=== PATIENT | female | born 1955 | race Caucasian/White ===

== ENCOUNTER 2018-12-05 21:54 | Emergency (ER) | payer MEDICARE ==
[~2018-12-05 21:54] MED LIST: SODIUM CHLORIDE 0.9% 1,000 ML IV STA
[2018-12-05 22:08] LABS: Glucose,Whole Blood 118 mg/dL (75-99)
[2018-12-05 22:09] VITALS: TEMP 98.1
--- NOTE | 2018-12-05 22:25 | CT ---
ADDENDUM - Added by Beth Nguyen M.D. on 12/05/2018 10:25 PM (-07:00) EXAM: CT Head Without Intravenous Contrast CLINICAL HISTORY: Right sided weakness ITS.REASON CT Reason: Neuro Deficits TECHNIQUE: Axial computed tomography images of the head/brain without intravenous contrast. CTDI is 48.8 mGy and DLP is 1592.7 mGy-cm. This CT exam was performed using one or more of the following dose reduction techniques: automated exposure control, adjustment of the mA and/or kV according to patient size, and/or use of iterative reconstruction technique. COMPARISON: No relevant prior studies available. FINDINGS: Brain: No hemorrhage. Small focus of low-attenuation in the left parietal region (sagittal 39), possible small age indeterminate infarct. Bilateral frontoparietal postsurgical changes and encephalomalacia. Right frontal shunt catheter is noted. Patchy white matter low attenuation, nonspecific. Involutional changes. Ventricles: Unremarkable. Bones/joints: No acute fracture. Soft tissues: Unremarkable. Sinuses: Minimal sinus disease. Mastoid air cells: Unremarkable as visualized. IMPRESSION: 1. No intracranial hemorrhage.. 2. Small focus of low-attenuation in the left parietal region, possible age indeterminate infarct. Correlate with prior imaging if available, MRI may be considered if indicated. <MYCVCSECTION> Critical Value Communications 12/05/18 22:35 Verify Receipt Verified receipt with Kati NOGUERA given to Dr. Alvarado on 12/05 22:34 (-04:00)
--- NOTE | 2018-12-05 22:35 | ED ---
Neuro HPI - General Stated Complaint: Stroke like symptoms Time Seen by Provider: 12/05/18 21:54 Source: EMS Mode of arrival: EMS Limitations: no limitations - History of Present Illness Is the patient presenting with stroke symptoms?: Yes Last Known Well Date: 12/05/18 Last Known Well Time: 20:00 Onset/Timin -: hour(s) Initial Comments: Does a 63-year-old female with past medical history significant for aneurysm and resulting neurosurgical surgery was shunt placement. Patient presents to the emergency department today for evaluation of acute onset of right arm and leg weakness. Patient reports these symptoms developed around 8 PM tonight. P afia reports decreased sensation in her arm and leg as well as weakness. She denies any headache, vision changes. - Related Data Home Medications: Home Medications Medication Instructions Recorded Confirmed Atorvastatin [Lipitor] 40 mg PO HS 12/05/18 12/05/18 Divalproex [Depakote] 250 mg PO BID 12/05/18 12/05/18 Sertraline [Zoloft] 50 mg PO DAILY 12/05/18 12/05/18 Allergies/Adverse Reactions: Allergies Allergy/AdvReac Type Severity Reaction Status Date / Time No Known Allergies Allergy Unverified 12/05/18 22:07 Review of Systems ROS Statement: Those systems with pertinent positive or pertinent negative responses have been documented in the HPI. ROS Other: All systems not noted in ROS Statement are negative. General Exam - General Exam Comments Initial Comments: Physical Exam GENERAL: Patient is well-developed and well-nourished. Patient is nontoxic and well- hydrated and is in no distress. HENT: Normocephalic, Atraumatic. EYES: Sluggish reaction of right pupil PULMONARY: Unlabored respirations. No audible rales rhonchi or wheezing was noted. CARDIOVASCULAR: There is a regular rate and rhythm without any murmurs gallops or rubs. ABDOMEN: Soft and nontender with normal bowel sounds. SKIN: Skin is clear with no lesions or rashes and otherwise unremarkable. : Deferred NEUROLOGIC: Patient is alert and oriented x3. Moving all extremities spontaneously Cranial nerves II through XII grossly intact Patient has drift of the right upper extremity as well as drift of the right lower extremity Normal surgical scrub technologist strength Decreased sensation of the right upper extremity No ataxia MUSCULOSKELETAL: Normal extremities with adequate strength and full range of motion. No lower extremity swelling or edema. No calf tenderness. PSYCHIATRIC: Appropriate situational anxiety Limitations: no limitations Stroke MDM - Lab Data Result diagrams: 12/05/18 22:25 12/05/18 22:21 Lab Results 12/05/18 12/05/18 12/05/18 Range/Units 22:06 22:21 22:21 WBC (3.8-10.6) k/uL RBC (3.80-5.40) m/uL Hgb (11.4-16.0) gm/dL Hct (34.0-46.0) % MCV (80.0-100.0) fL MCH (25.0-35.0) pg MCHC (31.0-37.0) g/dL RDW (11.5-15.5) % Plt Count (150-450) k/uL Neutrophils % % Lymphocytes % % Monocytes % % Eosinophils % % Basophils % % Neutrophils # (1.3-7.7) k/uL Lymphocytes # (1.0-4.8) k/uL Monocytes # (0-1.0) k/uL Eosinophils # (0-0.7) k/uL Basophils # (0-0.2) k/uL PT 9.4 (9.0-12.0) sec INR 0.9 (<1.2) APTT 20.2 L (22.0-30.0) sec Sodium 141 (137-145) mmol/L Potassium 4.8 (3.5-5.1) mmol/L Chloride 113 H (98-107) mmol/L Carbon Dioxide 18 L (22-30) mmol/L Anion Gap 10 mmol/L BUN 19 H (7-17) mg/dL Creatinine 1.01 (0.52-1.04) mg/dL Est GFR (CKD-EPI)AfAm 68 (>60 ml/min/1.73 sqM) Est GFR (CKD-EPI)NonAf 59 (>60 ml/min/1.73 sqM) Glucose 104 H (74-99) mg/dL POC Glucose (mg/dL) 118 H (75-99) mg/dL POC Glu Audio Production Manager ID Brittney Faith Calcium 9.2 (8.4-10.2) mg/dL Total Bilirubin 0.5 (0.2-1.3) mg/dL AST 31 (14-36) U/L ALT 19 (9-52) U/L Alkaline Phosphatase 113 (38-126) U/L Troponin I (0.000-0.034) ng/mL Total Protein 7.2 (6.3-8.2) g/dL Albumin 4.1 (3.5-5.0) g/dL 12/05/18 12/05/18 Range/Units 22:21 22:25 WBC 7.1 (3.8-10.6) k/uL RBC 4.00 (3.80-5.40) m/uL Hgb 12.6 (11.4-16.0) gm/dL Hct 37.9 (34.0-46.0) % MCV 94.6 (80.0-100.0) fL MCH 31.6 (25.0-35.0) pg MCHC 33.4 (31.0-37.0) g/dL RDW 15.0 (11.5-15.5) % Plt Count 264 (150-450) k/uL Neutrophils % 51 % Lymphocytes % 32 % Monocytes % 6 % Eosinophils % 8 % Basophils % 1 % Neutrophils # 3.7 (1.3-7.7) k/uL Lymphocytes # 2.3 (1.0-4.8) k/uL Monocytes # 0.4 (0-1.0) k/uL Eosinophils # 0.6 (0-0.7) k/uL Basophils # 0.1 (0-0.2) k/uL PT (9.0-12.0) sec INR (<1.2) APTT (22.0-30.0) sec Sodium (137-145) mmol/L Potassium (3.5-5.1) mmol/L Chloride (98-107) mmol/L Carbon Dioxide (22-30) mmol/L Anion Gap mmol/L BUN (7-17) mg/dL Creatinine (0.52-1.04) mg/dL Est GFR (CKD-EPI)AfAm (>60 ml/min/1.73 sqM) Est GFR (CKD-EPI)NonAf (>60 ml/min/1.73 sqM) Glucose (74-99) mg/dL POC Glucose (mg/dL) (75-99) mg/dL POC Glu Audio Production Manager ID Calcium (8.4-10.2) mg/dL Total Bilirubin (0.2-1.3) mg/dL AST (14-36) U/L ALT (9-52) U/L Alkaline Phosphatase (38-126) U/L Troponin I <0.012 (0.000-0.034) ng/mL Total Protein (6.3-8.2) g/dL Albumin (3.5-5.0) g/dL - NIH Stroke Scale 1a. Level of Consciousness: (0) alert 1b. LOC Questions: (0) answers correctly 1c. LOC Commands: (0) performs tasks correctly 2. Best Gaze: (0) normal 3. Visual: (0) no visual loss 4. Facial Palsy: (0) normal symmetrical movement 5a. Motor Arm Left: (0) no drift 5b. Motor Arm Right: (1) drift 6a. Motor Leg Left: (0) no drift 6b. Motor Leg Right: (1) drift 7. Limb Ataxia: (0) absent 8. Sensory: (1) mild/moderate sensory loss 9. Best Language: (0) no aphasia 10. Dysarthria: (0) normal 11. Extinction/Inattention: (0) no abnormality - Medical Decision Making The patient was seen and evaluated immediately upon arrival to the emergency department. Patient was noted to have right arm and leg drift, NIH is 3. Patient was transitioned physician from EMS [facility] directly to the CT suite where she underwent a CT and CTA. Patient care was discussed with neuro inter ventional is Dr. Gutierrez, who evaluated the patient via the stroke robot, patient adamantly declines TPA as she has had intracranial hemorrhage in the past with aneurysm rupture and does not want to risk any further intracranial hemorrhage. Patient understands risks and benefits. At this time Dr. Gutierrez recommends transfer to [facility] for admission to the neuro ICU. Past Medical History Additional Past Medical History / Comment(s): brain aneurysm History of Any Multi-Drug Resistant Organisms: None Reported Past Surgical History: Back Surgery, Orthopedic Surgery Additional Past Surgical History / Comment(s): shunt placement, neck surgery, right knee Past Psychological History: No Psychological Hx Reported Smoking Status: Current every day smoker Past Alcohol Use History: None Reported Past Drug Use History: None Reported Course Vital Signs 12/05/18 12/05/18 12/05/18 21:56 22:10 22:20 Temperature 98.1 F Pulse Rate 98 89 90 Respiratory 18 19 19 Rate Blood Pressure 111/66 111/68 114/62 O2 Sat by Pulse 98 98 98 Oximetry 12/05/18 12/05/18 12/05/18 22:30 22:40 22:50 Temperature Pulse Rate 93 93 93 Respiratory 16 18 13 Rate Blood Pressure 114/62 150/96 147/72 O2 Sat by Pulse 97 97 96 Oximetry 12/05/18 12/05/18 23:21 23:40 Temperature Pulse Rate 91 100 Respiratory 20 20 Rate Blood Pressure 99/82 109/78 O2 Sat by Pulse 98 96 Oximetry Critical Care Time Critical Care Time: Yes Total Critical Care Time: 30 Critical Care Time: Critical Care Time Critical care time was exclusive of separately billable procedures and treating other patients and teaching time. Critical care was necessary to treat or prevent imminent or life-threatening deterioration. Given the critical condition in which the patient arrived, the patient was immediately assessed by myself and the nurse, and cardiac monitoring initiated due to the potential for rapid decompensation of the patient's clinical condition. During the course of the patients stay, I spent a considerable amount of time at the bedside performing serial re-evaluations of the patient's hemodynamic and clinical status because of the recognized potential threat to life or limb in this condition. I then had a chance to review not only all of the available current laboratory and radiographic studies obtained today, but I also reviewed old records available to me at the time. Additionally, any anc illary information available including automatic coil machine operator records were reviewed. Sequential vital signs were obtained. Disposition Clinical Impression: Cerebrovascular accident Disposition: OTHER INSTITUTION NOT DEFINED Condition: Serious Is patient prescribed a controlled substance at d/c from ED?: No Referrals: None,Stated [REFERRING] - 1-2 days - Out of Hospital Transfer - Req. Specs Out of Hospital Transfer - Requested Specifics: Neurological ICU ([facility])
[2018-12-05] MEDS ORDERED: ATORVASTATIN 20 MG TAB PO STA (22:36)
[2018-12-05] MEDS ORDERED: ASPIRIN 325 MG TAB PO STA (22:36)
--- NOTE | 2018-12-05 22:36 | CT ---
EXAM: CT Angiography Head With Intravenous Contrast CLINICAL HISTORY: ITS.REASON CT Reason: Neuro Deficits TECHNIQUE: Axial computed tomographic angiography images of the head with intravenous contrast using CT angiography protocol. CTDI is 11.8 mGy and DLP is 489.7 mGy-cm. This CT exam was performed using one or more of the following dose reduction techniques: automated exposure control, adjustment of the mA and/or kV according to patient size, and/or use of iterative reconstruction technique. 3D and MIP reconstructed images were created and reviewed. COMPARISON: CT head 12/05/2018 FINDINGS: Right internal carotid artery: No acute findings. Intracranial segment is patent with no significant stenosis. No aneurysm. Right anterior cerebral artery: Unremarkable. No occlusion or significant stenosis. No aneurysm. Right middle cerebral artery: Unremarkable. No occlusion or significant stenosis. No aneurysm. Right posterior cerebral artery: Unremarkable. No occlusion or significant stenosis. No aneurysm. Right vertebral artery: Unremarkable as visualized. Left internal carotid artery: No acute findings. Intracranial segment is patent with no significant stenosis. No aneurysm. Left anterior cerebral artery: Unremarkable. No occlusion or significant stenosis. No aneurysm. Left middle cerebral artery: Unremarkable. No occlusion or significant stenosis. No aneurysm. Left posterior cerebral artery: Unremarkable. No occlusion or significant stenosis. No aneurysm. Left vertebral artery: Unremarkable as visualized. Basilar artery: Unremarkable. No occlusion or significant stenosis. No aneurysm. Bones/joints: Postsurgical changes seen related to bilateral pterional craniotomies with right parasellar aneurysm clip. There is also a right frontal approach ventriculostomy with catheter tip in the third ventricle. IMPRESSION: 1. No large vessel occlusion. 2. Postsurgical change related to right parasellar aneurysm clip. EXAM: CT Angiography Neck With Intravenous Contrast CLINICAL HISTORY: ITS.REASON CT Reason: Neuro Deficits TECHNIQUE: Axial computed tomographic angiography images of the neck with intravenous contrast using CT angiography protocol. CTDI is 11.8 mGy and DLP is 489.7 mGy-cm. This CT exam was performed using one or more of the following dose reduction techniques: automated exposure control, adjustment of the mA and/or kV according to patient size, and/or use of iterative reconstruction technique. 3D and MIP reconstructed images were created and reviewed. COMPARISON: None. FINDINGS: VASCULATURE: Right common carotid artery: Unremarkable. No significant stenosis. No dissection or occlusion. Right internal carotid artery: See below. Right external carotid artery: Unremarkable. No occlusion. Right vertebral artery: Unremarkable. No significant stenosis. No dissection or occlusion. Left common carotid artery: Unremarkable. No significant stenosis. No dissection or occlusion. Left internal carotid artery: See below. Left external carotid artery: Unremarkable. No occlusion. Left vertebral artery: Unremarkable. No significant stenosis. No dissection or occlusion. Other vasculature: There is atherosclerosis of the carotid bifurcations without hemodynamically significant stenosis. NECK: Bones/joints: No acute fracture. No dislocation. Soft tissues: Unremarkable as visualized. No mass. CAROTID STENOSIS REFERENCE USING NASCET CRITERIA: % ICA stenosis = (1 - narrowest ICA diameter/diameter of distal cervical ICA) x 100. Mild - <50% stenosis. Moderate - 50-69% stenosis. Severe - 70-94% stenosis. Near occlusion - 95-99% stenosis. Occluded - 100% stenosis. IMPRESSION: No evidence of dissection, pseudoaneurysm, or hemodynamically significant stenosis of the carotid or vertebral arteries.
[2018-12-05 22:42] LABS: Albumin 4.1 g/dL (3.5-5.0); Calcium 9.2 mg/dL (8.4-10.2); Total Bilirubin 0.5 mg/dL (0.2-1.3); Total Protein 7.2 g/dL (6.3-8.2)
[2018-12-05 22:44] LABS: Potassium 4.8 mmol/L (3.5-5.1)
[2018-12-05 22:51] LABS: INR 0.9 (<1.2); Prothrombin Time 9.4 sec (9.0-12.0)
[2018-12-05 22:52] LABS: Partial Thromboplastin Time 20.2 sec (22.0-30.0)
[2018-12-05 22:56] LABS: Basophils # (A) 0.1 k/uL (0-0.2); Basophils % (A) 1 %; Eosinophils # (A) 0.6 k/uL (0-0.7); Eosinophils % (A) 8 %; HCT 37.9 % (34.0-46.0); HGB 12.6 gm/dL (11.4-16.0); Lymphocytes # (A) 2.3 k/uL (1.0-4.8); Lymphocytes % (A) 32 %; MCH 31.6 pg (25.0-35.0); MCHC 33.4 g/dL (31.0-37.0); MCV 94.6 fL (80.0-100.0); Mean Platelet Volume 9.6; Monocytes # (A) 0.4 k/uL (0-1.0); Monocytes % (A) 6 %; Neutrophils # (A) 3.7 k/uL (1.3-7.7); Neutrophils % (A) 51 %; Platelet Count 264 k/uL (150-450); WBC 7.1 k/uL (3.8-10.6)
[2018-12-05] MEDS ORDERED: LORazepam 1 MG TAB PO STA (22:57)
--- NOTE | 2018-12-05 23:10 | XR ---
EXAM: XR Chest, 1 View CLINICAL HISTORY: ITS.REASON XR Reason: altered mental status TECHNIQUE: Frontal view of the chest. COMPARISON: No relevant prior studies available. FINDINGS: Lungs: Mild atelectatic changes. No consolidation. Pleural space: No significant pleural effusion or pneumothorax. Heart: Unremarkable. Mediastinum: Unremarkable. Bones/joints: Cervical hardware and shunt catheter noted. IMPRESSION: Mild atelectatic changes. No consolidation.
[2018-12-06 00:30] VITALS: BP 116/82; PULSE 92; RESP 24
== END 2018-12-06 00:46 | disposition short-term general hospital (02) ==
LOC: EC 21:54
DX: I63.9 Cerebral infarction, unspecified (principal); R29.703 NIHSS score 3; F17.200 Nicotine dependence, unspecified, uncomplicated; Z79.899 Other long term (current) drug therapy; Z86.69 Personal history of other diseases of the nervous system and sense organs; Z98.2 Presence of cerebrospinal fluid drainage device; Z53.29 Procedure and treatment not carried out because of patient's decision for other reasons
CPT/HCPCS: 36415; 93005; 80053; 84484; 85025; 85610; 85730; 71045; 70496; 70450; 70498; 99291; 96360; 96361; Q9967

== ENCOUNTER 2020-11-06 15:23 | Emergency (ER) | payer MEDICARE ==
--- NOTE | 2020-11-06 16:02 | ED ---
Psych HPI - General Source: EMS Mode of arrival: EMS <Daxa Pugh - Last Filed: 11/07/20 00:38> <Julio Cisneros - Last Filed: 11/11/20 15:23> - General Chief Complaint: Psychiatric Symptoms Stated Complaint: Mental Health Time Seen by Provider: 11/06/20 15:25 - History of Present Illness Initial Comments: 65 year-old female patient presents to the emergency department for [facility] for increased agitation and UTI. Patient has history of dementia and psychosis and is unable to contribute to history. States she does not know why she is here. States she feels fine. She does report a headache but states she has had them for years. Denies any new symptoms. When asked if she is suicidal she states "I don't know", she indicated to the nurse that she felt like she would be better off , but does not have a plan to take her life. She denies any homicidal ideation. When asked about threatening staff at [facility] she states, "I would never hurt anyone". Patient denies any recent rash, fever, chills, cough, shortness of breath, chest pain, abdominal pain, nausea, vomiting, diarrhea, constipation, back pain, numbness, tingling, dizziness, weakness, hematuria, dysuria, urinary urgency, urinary frequency, visual changes, or any other complaints. (Daxa Pugh) - Related Data Home Medications Medication Instructions Recorded Confirmed ALPRAZolam [Xanax] 0.25 mg PO Q8H PRN 11/06/20 11/06/20 Aspirin EC [Ecotrin] 325 mg PO DAILY 11/06/20 11/06/20 Atorvastatin Calcium [Lipitor] 20 mg PO HS 11/06/20 11/06/20 Clopidogrel Bisulfate [Plavix] 75 mg PO DAILY 11/06/20 11/06/20 Donepezil HCl [Aricept] 10 mg PO DAILY 11/06/20 11/06/20 Ezetimibe [Zetia] 10 mg PO HS 11/06/20 11/06/20 Melatonin 3 mg PO HS PRN 11/06/20 11/06/20 Omeprazole 20 mg PO HS 11/06/20 11/06/20 Sertraline HCl [Zoloft] 100 mg PO DAILY 11/06/20 11/06/20 Topiramate [Topamax] 100 mg PO BID@0700,1600 11/06/20 11/06/20 traZODone HCL 100 mg PO HS 11/06/20 11/06/20 Allergies Allergy/AdvReac Type Severity Reaction Status Date / Time No Known Allergies Allergy Verified 11/06/20 17:18 Review of Systems ROS Other: All systems not noted in ROS Statement are negative. <Daxa Pugh - Last Filed: 11/07/20 00:38> ROS Other: All systems not noted in ROS Statement are negative. <Julio Cisneros - Last Filed: 11/11/20 15:23> ROS Statement: Those systems with pertinent positive or pertinent negative responses have been documented in the HPI. Past Medical History Past Medical History: CVA/TIA, GERD/Reflux, Hyperlipidemia, Liver Disease Additional Past Medical History / Comment(s): brain aneurysm; TIA; Hepatitis C; Dementia; Psychosis History of Any Multi-Drug Resistant Organisms: None Reported Past Surgical History: Back Surgery, Orthopedic Surgery Additional Past Surgical History / Comment(s): shunt placement, neck surgery, right knee Past Psychological History: No Psychological Hx Reported Smoking Status: Current every day smoker Past Alcohol Use History: Occasional Past Drug Use History: None Reported <Daxa Pugh - Last Filed: 11/07/20 00:38> General Exam Limitations: no limitations General appearance: alert, in no apparent distress, other (Physical well-deve loped, well-nourished adult female patient in no acute distress. Vital signs upon presentation temperature 98.0F, pulse 69, respirations 18, blood pressure 109/67, pulse ox 100% on room air.) Eye exam: Present: normal appearance, PERRL, EOMI. Absent: scleral icterus, conjunctival injection, nystagmus, periorbital swelling ENT exam: Present: normal exam, normal oropharynx, mucous membranes moist Respiratory exam: Present: normal lung sounds bilaterally. Absent: respiratory distress, wheezes, rales, rhonchi, stridor Cardiovascular Exam: Present: regular rate, normal rhythm, normal heart sounds. Absent: systolic murmur, diastolic murmur, rubs, gallop, clicks GI/Abdominal exam: Present: soft, normal bowel sounds. Absent: distended, tenderness, guarding, rebound, rigid Neurological exam: Present: alert, oriented X3, CN II-XII intact Psychiatric exam: Present: normal affect, normal mood Skin exam: Present: warm, dry, intact, normal color. Absent: rash <Daxa Pugh - Last Filed: 11/07/20 00:38> Course <Daxa Pugh - Last Filed: 11/07/20 00:38> <Julio Cisneros - Last Filed: 11/11/20 15:23> Vital Signs 11/06/20 11/06/20 11/06/20 15:29 16:37 17:00 Temperature 98 F Pulse Rate 69 Respiratory 18 18 18 Rate Blood Pressure 109/67 O2 Sat by Pulse 100 Oximetry 11/06/20 11/07/20 11/07/20 18:00 06:30 17:25 Temperature 98.2 F 98.4 F Pulse Rate 61 73 Respiratory 18 22 20 Rate Blood Pressure 90/56 111/69 O2 Sat by Pulse 98 97 Oximetry 11/08/20 11/08/20 11/08/20 06:05 11:09 20:20 Temperature 97.8 F 98.3 F Pulse Rate 78 65 Respiratory 18 16 16 Rate Blood Pressure 96/63 110/71 O2 Sat by Pulse 98 98 Oximetry 11/08/20 11/09/20 11/09/20 21:30 07:28 22:36 Temperature 97.8 F 98.3 F Pulse Rate 72 78 Respiratory 18 18 16 Rate Blood Pressure 97/54 110/78 O2 Sat by Pulse 99 98 Oximetry 11/10/20 11/10/20 11/10/20 07:14 16:35 18:10 Temperature 98.0 F Pulse Rate 76 89 70 Respiratory 16 16 16 Rate Blood Pressure 103/68 136/79 102/62 O2 Sat by Pulse 97 99 96 Oximetry 11/10/20 11/11/20 11/11/20 23:00 08:00 09:00 Temperature Pulse Rate 87 Respiratory 17 16 16 Rate Blood Pressure 117/73 O2 Sat by Pulse 97 Oximetry 11/11/20 11/11/20 11/11/20 10:00 10:23 13:00 Temperature 98.1 F Pulse Rate 62 Respiratory 16 16 16 Rate Blood Pressure 99/61 O2 Sat by Pulse 96 Oximetry 11/11/20 14:00 Temperature Pulse Rate Respiratory 16 Rate Blood Pressure O2 Sat by Pulse Oximetry - Reevaluation(s) Reevaluation #1: 11/06/20 16:55 Patient became agitated. Trying to leave the room. Yelling at staff. Yelling, " It doesn't matter, my family don't care, I don't care, and you don't care. I want to . Give me a shot to kill me." "There is nothing to live for anymore, I want to ". Patient was coaxed back into her room. She will be given an injection of ativan to help calm her. She will be closely monitored. (Daxa Pugh) Reevaluation #2: 11/06/20 19:05 Patient evaluated by EPS. Psychiatrist feels patient would benefit from admission to inpatient geriatric psych facility. Patient verbalized both suicidal and homicidal ideation. EPS arranging transfer. Patient currently calm and cooperative. (Daxa Pugh) 11/11/20 15:21 Patient was seen by mental health services who feels patient can be discharged. Patient was seen by psychiatrist and medication changes were recommended. Patient will be transferred back to nursing facility. Patient was reevaluated and resting comfortably in bed. Patient is acting appropriate at this time. Patient was reevaluated and reexamined by myself. I do agree with PA findings including diagnostic interpretation and treatment plan. There is limited concern for urinary tract infection. (Julio Cisneros) Medical Decision Making - Lab Data Result diagrams: 11/06/20 16:03 11/06/20 16:03 <Daxa Pugh - Last Filed: 11/07/20 00:38> - Lab Data Result diagrams: 11/06/20 16:03 11/06/20 16:03 <Julio Cisneors - Last Filed: 11/11/20 15:23> - Medical Decision Making 65 year-old female patient presented to the emergency department today for increased agitation homicidal ideation. Patient did admit to suicidal ideation as well. Did have an outburst where she was begging someone to give her a shot to kill her. As reviewed and were unremarkable. CT of the brain was negative. She was seen and evaluated by emergency psychiatric services. Psychiatry felt that it was beneficial for her to be admitted to [facility] psychiatric facility. She will be transferred as soon as a facility becomes available. Patient has been resting comfortably. Care will be handed over to my attending Dr. Hernandez at 00:00 11/07/20. (Daxa Pugh) - Lab Data Lab Results 11/06/20 11/06/20 11/06/20 Range/Units 15:53 15:53 16:03 WBC 7.5 (3.8-10.6) k/uL RBC 3.88 (3.80-5.40) m/uL Hgb 12.4 (11.4-16.0) gm/dL Hct 37.9 (34.0-46.0) % MCV 97.6 (80.0-100.0) fL MCH 31.8 (25.0-35.0) pg MCHC 32.6 (31.0-37.0) g/dL RDW 14.4 (11.5-15.5) % Plt Count 232 (150-450) k/uL MPV 10.5 Neutrophils % 66 % Lymphocytes % 20 % Monocytes % 7 % Eosinophils % 6 % Basophils % 1 % Neutrophils # 4.9 (1.3-7.7) k/uL Lymphocytes # 1.5 (1.0-4.8) k/uL Monocytes # 0.5 (0-1.0) k/uL Eosinophils # 0.4 (0-0.7) k/uL Basophils # 0.1 (0-0.2) k/uL Sodium (137-145) mmol/L Potassium (3.5-5.1) mmol/L Chloride (98-107) mmol/L Carbon Dioxide (22-30) mmol/L Anion Gap mmol/L BUN (7-17) mg/dL Creatinine (0.52-1.04) mg/dL Est GFR (CKD-EPI)AfAm (>60 ml/min/1.73 sqM) Est GFR (CKD-EPI)NonAf (>60 ml/min/1.73 sqM) Glucose (74-99) mg/dL Calcium (8.4-10.2) mg/dL Total Bilirubin (0.2-1.3) mg/dL AST (14-36) U/L ALT (4-34) U/L Alkaline Phosphatase (38-126) U/L Total Protein (6.3-8.2) g/dL Albumin (3.5-5.0) g/dL Urine Color Yellow Urine Appearance Cloudy H (Clear) Urine pH 6.0 (5.0-8.0) Ur Specific [place] 1.014 (1.001-1.035) Urine Protein Negative (Negative) Urine Glucose (UA) Negative (Negative) Urine Ketones Negative (Negative) Urine Blood Negative (Negative) Urine Nitrite Negative (Negative) Urine Bilirubin Negative (Negative) Urine Urobilinogen <2.0 (<2.0) mg/dL Ur Leukocyte Esterase Negative (Negative) Urine RBC 1 (0-5) /hpf Urine WBC 1 (0-5) /hpf Ur Squamous Epith Cells 9 H (0-4) /hpf Urine Bacteria Rare H (None) /hpf Hyaline Casts 1 (0-2) /lpf Urine Mucus Rare H (None) /hpf Urine Opiates Screen Not Detected (NotDetected) Ur Oxycodone Screen Not Detected (NotDetected) Urine Methadone Screen Not Detected (NotDetected) Ur Propoxyphene Screen Not Detected (NotDetected) Ur Barbiturates Screen Not Detected (NotDetected) U Tricyclic Antidepress Not Detected (NotDetected) Ur Phencyclidine Scrn Not Detected (NotDetected) Ur Amphetamines Screen Not Detected (NotDetected) U Methamphetamines Scrn Not Detected (NotDetected) U Benzodiazepines Scrn Detected H (NotDetected) Urine Cocaine Screen Not Detected (NotDetected) U Marijuana (THC) Screen Not Detected (NotDetected) Coronavirus (PCR) (Not Detectd) 11/06/20 11/07/20 Range/Units 16:03 06:56 WBC (3.8-10.6) k/uL RBC (3.80-5.40) m/uL Hgb (11.4-16.0) gm/dL Hct (34.0-46.0) % MCV (80.0-100.0) fL MCH (25.0-35.0) pg MCHC (31.0-37.0) g/dL RDW (11.5-15.5) % Plt Count (150-450) k/uL MPV Neutrophils % % Lymphocytes % % Monocytes % % Eosinophils % % Basophils % % Neutrophils # (1.3-7.7) k/uL Lymphocytes # (1.0-4.8) k/uL Monocytes # (0-1.0) k/uL Eosinophils # (0-0.7) k/uL Basophils # (0-0.2) k/uL Sodium 142 (137-145) mmol/L Potassium 4.4 (3.5-5.1) mmol/L Chloride 111 H (98-107) mmol/L Carbon Dioxide 22 (22-30) mmol/L Anion Gap 9 mmol/L BUN 22 H (7-17) mg/dL Creatinine 1.16 H (0.52-1.04) mg/dL Est GFR (CKD-EPI)AfAm 57 (>60 ml/min/1.73 sqM) Est GFR (CKD-EPI)NonAf 49 (>60 ml/min/1.73 sqM) Glucose 96 (74-99) mg/dL Calcium 9.7 (8.4-10.2) mg/dL Total Bilirubin 0.4 (0.2-1.3) mg/dL AST 29 (14-36) U/L ALT 17 (4-34) U/L Alkaline Phosphatase 92 (38-126) U/L Total Protein 7.4 (6.3-8.2) g/dL Albumin 4.6 (3.5-5.0) g/dL Urine Color Urine Appearance (Clear) Urine pH (5.0-8.0) Ur Specific [place] (1.001-1.035) Urine Protein (Negative) Urine Glucose (UA) (Negative) Urine Ketones (Negative) Urine Blood (Negative) Urine Nitrite (Negative) Urine Bilirubin (Negative) Urine Urobilinogen (<2.0) mg/dL Ur Leukocyte Esterase (Negative) Urine RBC (0-5) /hpf Urine WBC (0-5) /hpf Ur Squamous Epith Cells (0-4) /hpf Urine Bacteria (None) /hpf Hyaline Casts (0-2) /lpf Urine Mucus (None) /hpf Urine Opiates Screen (NotDetected) Ur Oxycodone Screen (NotDetected) Urine Methadone Screen (NotDetected) Ur Propoxyphene Screen (NotDetected) Ur Barbiturates Screen (NotDetected) U Tricyclic Antidepress (NotDetected) Ur Phencyclidine Scrn (NotDetected) Ur Amphetamines Screen (NotDetected) U Methamphetamines Scrn (NotDetected) U Benzodiazepines Scrn (NotDetected) Urine Cocaine Screen (NotDetected) U Marijuana (THC) Screen (NotDetected) Coronavirus (PCR) Not Detected (Not Detectd) Disposition <Daxa Pugh - Last Filed: 11/07/20 00:38> Is patient prescribed a controlled substance at d/c from ED?: No Time of Disposition: 15:22 <Julio Cisneros - Last Filed: 11/11/20 15:23> Clinical Impression: Agitation Disposition: HOME SELF-CARE Condition: Stable Instructions (If sedation given, give patient instructions): Cognitive Behavioral Therapy (ED), Conduct Disorder (ED) Additional Instructions: Medication changes as recommended by mental health services. Please follow-up with primary care physician in the next day or 2 for recheck. Please follow-up with mental health services as instructed. Return for worsening symptoms or other concerns. Referrals: Kari Meadows DO [Primary Care Provider] - 1-2 days
[2020-11-06 16:09] LABS: Appearance,Urine Cloudy (Clear); Bacteria,Urine Rare /hpf; Bilirubin,Urine Negative (Negative); Blood,Urine Negative (Negative); Color,Urine Yellow; Glucose,Urine (UA) Negative (Negative); Hyaline Casts,Urine 1 /lpf (0-2); Ketones,Urine Negative (Negative); Leukocyte Esterase,Urine Negative (Negative); Mucus,Urine Rare /hpf; Nitrite,Urine Negative (Negative); Protein,Urine Negative (Negative); RBC,Urine 1 /hpf (0-5); Specific Gravity,Urine 1.014 (1.001-1.035); Squamous Epithelial Cell,Urine 9 /hpf (0-4); Urobilinogen,Urine <2.0 mg/dL (<2.0); WBC,Urine 1 /hpf (0-5)
[2020-11-06 16:18] LABS: Amphetamine Screen,Urine Not Detected (NotDetected); Barbiturate Screen,Urine Not Detected (NotDetected); Benzodiazepines Screen,Urine Detected (NotDetected); Cocaine Screen,Urine Not Detected (NotDetected); Methadone Screen, Urine Not Detected (NotDetected); Opiate Screen,Urine Not Detected (NotDetected); Oxycodone Screen, Urine Not Detected (NotDetected); Phencyclidine Screen,Urine Not Detected (NotDetected); Tricyclic Antidepressant,Urine Not Detected (NotDetected); Urn Cannabinoid Scrn Not Detected (NotDetected)
[2020-11-06 16:21] LABS: Basophils # (A) 0.1 k/uL (0-0.2); Basophils % (A) 1 %; Eosinophils # (A) 0.4 k/uL (0-0.7); Eosinophils % (A) 6 %; HCT 37.9 % (34.0-46.0); HGB 12.4 gm/dL (11.4-16.0); Lymphocytes # (A) 1.5 k/uL (1.0-4.8); Lymphocytes % (A) 20 %; MCH 31.8 pg (25.0-35.0); MCHC 32.6 g/dL (31.0-37.0); MCV 97.6 fL (80.0-100.0); Mean Platelet Volume 10.5; Monocytes # (A) 0.5 k/uL (0-1.0); Monocytes % (A) 7 %; Neutrophils # (A) 4.9 k/uL (1.3-7.7); Neutrophils % (A) 66 %; Platelet Count 232 k/uL (150-450); RBC 3.88 m/uL (3.80-5.40); RDW 14.4 % (11.5-15.5); WBC 7.5 k/uL (3.8-10.6)
[2020-11-06 16:27] LABS: Albumin 4.6 g/dL (3.5-5.0); Calcium 9.7 mg/dL (8.4-10.2); Total Bilirubin 0.4 mg/dL (0.2-1.3); Total Protein 7.4 g/dL (6.3-8.2)
[2020-11-06 16:44] LABS: Potassium 4.4 mmol/L (3.5-5.1)
[2020-11-06] MEDS ORDERED: SODIUM CHLORIDE 0.9% 500 ML 500 ML IV ONE (16:52)
[2020-11-06] MEDS ORDERED: LORazepam 2 MG/ML INJ IV STA (16:54)
--- NOTE | 2020-11-06 16:59 | CT ---
EXAMINATION TYPE: CT brain wo con DATE OF EXAM: 11/06/2020 HISTORY: ams, confusion CT DLP: 1127.4 mGycm. Automated Exposure Control for Dose Reduction was Utilized. TECHNIQUE: CT scan of the head is performed without contrast. COMPARISON: Head CT 12/05/2018. FINDINGS: Right frontal ventriculostomy catheter terminating in the third ventricle appears unchanged from prio r. Post right frontal craniotomy with posttreatment changes near the right carotid terminus at the or igin of the middle cerebral artery. Right supraclinoid internal carotid artery stent. Encephalomalacia of the anterior right frontal lobe and superior right frontal lobe. Similar-appearin g decreased attenuation within the periventricular white matter likely chronic small vessel ischemic change. No acute intracranial hemorrhage mass effect, or midline shift. No CT evidence of acute large vessel infarct. No hydrocephalus. Visualized paranasal sinuses and mastoid air cells appear clear. IMPRESSION: 1. No definite acute intracranial process. 2. Right frontal ventriculostomy without hydrocephalus. 3. Right frontal craniotomy changes with posttreatment hardware near the right terminus. 4. Vascular stent within the right supraclinoid internal carotid artery. 5. Encephalomalacia of the anterior right frontal lobe and superior right frontal lobe.
[2020-11-07] MEDS ORDERED: LORazepam 2 MG/ML INJ IV STA ×2 (06:00→12:20)
[2020-11-07] MEDS ORDERED: MELATONIN 3 MG TABLET PO PRN (09:56)
[2020-11-07] MEDS: ALPRAZolam 0.25 MG TAB PO PRN (10:03)
[2020-11-07] MEDS: TOPIRAMATE 100 MG TAB PO SCH (17:14)
[2020-11-07] MEDS ORDERED: NICOTINE 21MG/24HR PATCH TRANSDERM STA (18:27)
[2020-11-07] MEDS ORDERED: ACETAMINOPHEN TAB 500 MG TAB PO STA (18:42)
[2020-11-07] MEDS ORDERED: LORazepam 1 MG TAB PO STA (20:29)
[2020-11-07] MEDS: PANTOPRAZOLE 40 MG TABLET PO SCH (20:42)
[2020-11-07] MEDS: traZODone HCL 100 MG TAB PO SCH (20:42)
[2020-11-07] MEDS: EZETIMIBE 10 MG TAB PO SCH (20:42)
[2020-11-08] MEDS: TOPIRAMATE 100 MG TAB PO SCH ×2 (07:36→16:06)
[2020-11-08] MEDS ORDERED: CLOPIDOGREL 75 MG TAB PO SCH (09:00)
[2020-11-08] MEDS ORDERED: DONEPEZIL 10 MG TAB PO SCH (09:00)
[2020-11-08] MEDS ORDERED: SERTRALINE 100 MG TAB PO SCH (09:00)
[2020-11-08] MEDS ORDERED: NICOTINE 21MG/24HR PATCH TRANSDERM STA (12:35)
[2020-11-08] MEDS: ALPRAZolam 0.25 MG TAB PO PRN (12:37)
[2020-11-08] MEDS: PANTOPRAZOLE 40 MG TABLET PO SCH (20:28)
[2020-11-08] MEDS: traZODone HCL 100 MG TAB PO SCH (20:29)
[2020-11-08] MEDS: EZETIMIBE 10 MG TAB PO SCH (21:21)
[2020-11-09] MEDS ORDERED: ALPRAZolam 0.25 MG TAB PO PRN (07:53)
[2020-11-09] MEDS ORDERED: MELATONIN 3 MG TABLET PO PRN (07:54)
[2020-11-09] MEDS: TOPIRAMATE 100 MG TAB PO SCH ×3 (08:39→21:25)
[2020-11-09] MEDS: SERTRALINE 100 MG TAB PO SCH (08:39)
[2020-11-09] MEDS: DONEPEZIL 10 MG TAB PO SCH (08:39)
[2020-11-09] MEDS: CLOPIDOGREL 75 MG TAB PO SCH (08:39)
[2020-11-09] MEDS: NICOTINE 21MG/24HR PATCH TRANSDERM SCH (08:39)
[2020-11-09] MEDS ORDERED: NICOTINE 21MG/24HR PATCH TRANSDERM SCH (09:00)
[2020-11-09] MEDS: traZODone HCL 100 MG TAB PO SCH (21:26)
[2020-11-09] MEDS: EZETIMIBE 10 MG TAB PO SCH (21:26)
[2020-11-09] MEDS: PANTOPRAZOLE 40 MG TABLET PO SCH (21:26)
[2020-11-10] MEDS: TOPIRAMATE 100 MG TAB PO SCH ×2 (07:17→16:14)
[2020-11-10] MEDS: SERTRALINE 100 MG TAB PO SCH (08:18)
[2020-11-10] MEDS: DONEPEZIL 10 MG TAB PO SCH (08:18)
[2020-11-10] MEDS: CLOPIDOGREL 75 MG TAB PO SCH ×2 (08:18→22:31)
[2020-11-10] MEDS: NICOTINE 21MG/24HR PATCH TRANSDERM SCH (08:18)
--- NOTE | 2020-11-10 15:33 | P.CN ---
Psychiatric Consult - . Consult date: 11/10/20 Consult:: 11/10/20 14:57 IDENTIFYING DATA: This patient is a 65-year-old female who is a history of dementia who is currently living at [facility] and has 3 kids. REASON FOR REFERRAL: Psychiatry was consulted for agitation HISTORY OF PRESENT ILLNESS: The patient presented to the hospital on 11/06 for increased agitation and a urinary tract infection. Patient has a history of dementia and was a poor historian in the ER. Patient apparently has been yelling at staff and has been irritable and impulsive. Patient also has been making vague and confusing threats of self-harm and suicide. Computed tomography scan of the brain was negative for any acute changes. UDS was positive for benzodiazepines. Patient was seen at the bedside and agreeable to speak to writer producer. She requested to have more blankets that she was feeling cold. She states that she "don't have the faintest idea" as to why she is in the hospital. She was confused at times and tangential, illogical in her thought process. She described having headaches and her ears were ringing. She states that she is depressed about sitting in the hospital and requested several times to go out for a "smoke". She was fairly vague about her symptoms and the suicidal threats that she was making however claims that she has no active plans of harming herself. She claims that her sleep is poor. She believes that she is at the "[facility]" and does not know today's date however does know her full name. At this time patient denies any suicidal or homical ideations, intent or plan. Patient denies any auditory, visual hallucinations. Patients admits to using no recreational drugs PAST PSYCHIATRIC HISTORY: Patient has a a history of dementia. Patient is on trazodone, Zoloft, Aricept and Xanax. Patient denies any previous psychiatric hospitalizations. Patient denies any history of suicide attempts in the past. PAST MEDICAL HISTORY: CVA, GERD, hyperlipidemia, liver disease. ALLERGIES: as per EMR. CHEMICAL DEPENDENCY HISTORY: as per HPI. FAMILY PSYCHIATRIC/SUBSTANCE USE HISTORY: States that her grandmother has some form of mental illness. SOCIAL HISTORY: Patient was [place] 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 She claims that she currently lives at [facility].. MENTAL STATUS EXAM: General Appearance: Patient appears to be thin, elderly, stated age is alert, attempts to be cooperative. Patient appears to have fair hygiene and grooming wearing hospital gown with poor eye contact. Behavior: Patient is calmly lying in bed without any agitated behavior. Speech: Patient's speech is fluent and nonpressured. Mood/Affect: Patient reports their mood is "depressed", affect is congruent Suicidality/Homicidality: Patient denies having any suicidal or homicidal ideation intent or plan. Perceptions: Patient denies any visual hallucinations and denies any auditory hallucinations Though content/process: Rambles, tangential. Illogical at times. Memory and concentration: AOX1, does not know today's date or location, Cannot spell "WORLD" backwards Judgment and insight: poor IMPRESSIONS: Dementia with behavioral disturbances PLAN: -At this time patient DOES meet criteria for inpatient psychiatric admission continue looking for geriatric psych placement. -Patient DOES NOT have decision making capacity at this time and is unable to reason through and communicate/appreciate the risks, benefits and alternatives to treatment. -Delirium precautions recommended with patient including - avoiding use of narcotics and SLOTTER OPERATOR HELPER sedatives, limit anticholinergic medications when possible, frequent re-orientation, minimize use of restraints, open window shades during the day and close them at night -Would recommend the following medication changes/additions: Discontinue Xanax as this will increase patient's confusion. Continue trazodone 100 mg daily at bedtime for sleep/mood. Continue Zoloft 100 mg daily for mood. Admitted Depa kote 250 mg twice a day for mood stabilization/agitation. -Continue 1:1 sitter for safety -Cannot leave AMA at this time. Patient will need a petition and certification if attempting to leave AMA. -Communicated plan to patient's nurse -Will continue to follow along -Please contact with any questions.
[2020-11-10] MEDS: DIVALPROEX 250 MG TABLET.DR PO SCH ×2 (16:05→22:31)
[2020-11-10] MEDS ORDERED: MELATONIN 5 MG TABLET PO SCH (21:00)
[2020-11-10] MEDS: PANTOPRAZOLE 40 MG TABLET PO SCH (22:31)
[2020-11-10] MEDS: EZETIMIBE 10 MG TAB PO SCH (22:31)
[2020-11-10] MEDS: traZODone HCL 100 MG TAB PO SCH (22:31)
[2020-11-11] MEDS: TOPIRAMATE 100 MG TAB PO SCH (07:27)
[2020-11-11 08:47] VITALS: RESP 16
[2020-11-11] MEDS: SERTRALINE 100 MG TAB PO SCH (09:12)
[2020-11-11] MEDS: DIVALPROEX 250 MG TABLET.DR PO SCH (09:12)
[2020-11-11] MEDS: DONEPEZIL 10 MG TAB PO SCH (09:12)
[2020-11-11] MEDS: NICOTINE 21MG/24HR PATCH TRANSDERM SCH (11:36)
[2020-11-11] MEDS ORDERED: ACETAMINOPHEN TAB 325 MG TAB PO STA (14:00)
--- NOTE | 2020-11-11 15:12 | P.PN ---
Progress Note - Text Progress Note Date: 11/11/20 Interval History: Patient was seen today for psychiatric follow-up regarding patient's dementia with behavioral disturbances. Patient was seen at the bedside with her one-to-one sitter. She was agreeable to speak to hand sign writer and claims that she is doing "good today". She denied any overnight complaints and claims that she slept fairly however states that she did have some "tossing and turning". She did relay that this is mainly due to the noise in the ER. She asked several times when she can leave the ER and have a cigarette. She is denying any depression today and claims that today she is not feeling suicidal and denies any irritability or mood swings. At this time patient denies any suicidal or homical ideations, intent or plan. Patient denies any auditory, visual hallucinations and denies any paranoia or delusions. Patient denies any side effects from the medications and has been compliant with meds. Mental Status Exam: General Appearance: Patient appears to be thin, elderly, stated age is alert, attempts to be cooperative. Patient appears to have fair hygiene and grooming wearing hospital gown with improved eye contact. Behavior: Patient is calmly lying in bed without any agitated behavior. Speech: Patient's speech is fluent and nonpressured. Mood/Affect: Patient reports their mood is "fine", affect is congruent Suicidality/Homicidality: Patient denies having any suicidal or homicidal ideation intent or plan. Perceptions: Patient denies any visual hallucinations and denies any auditory hallucinations Though content/process: Rambles, tangential. More directable/logical. Memory and concentration: AOX1, does not know today's date or location Judgment and insight: chronically poor Assessment Dementia with behavioral disturbances Plan: -At this time patient DOES NOT meet criteria for inpatient psychiatric admission and is cleared to return back to [place] or with family. -Patient DOES NOT have decision making capacity at this time and is unable to reason through and communicate/appreciate the risks, benefits and alternatives to treatment. -Delirium precautions recommended with patient including - avoiding use of narcotics and EDUCATION SPEC sedatives, limit anticholinergic medications when possible, frequent re-orientation, minimize use of restraints, open window shades during the day and close them at night -Would recommend the following medication changes/additions: Continue trazodone 100 mg daily at bedtime for sleep/mood. Continue Zoloft 100 mg daily for mood. cont Depakote 250 mg twice a day for mood stabilization/agitation. increase melatonin to 10mg qhs for insomnia. -Communicated plan to EPS nurse Lena as patients ER nurse was not available. -At this time psychiatry will sign off. -Please contact with any questions.
[2020-11-11 17:15] VITALS: BP 103/62; PULSE 66; TEMP 98.3
== END 2020-11-11 17:16 | disposition home or self-care (01) ==
LOC: SUPCPDRO 15:23 → EC 15:23
DX: F03.91 Unspecified dementia, unspecified severity, with behavioral disturbance (principal); R45.1 Restlessness and agitation; E78.5 Hyperlipidemia, unspecified; F17.200 Nicotine dependence, unspecified, uncomplicated; K21.9 Gastro-esophageal reflux disease without esophagitis; Z79.82 Long term (current) use of aspirin; Z79.899 Other long term (current) drug therapy; Z86.73 Personal history of transient ischemic attack (TIA), and cerebral infarction without residual deficits; Z20.822 Contact with and (suspected) exposure to COVID-19
CPT/HCPCS: 99285 ×2; 96374 ×2; 96376; 82075; 36415; 80053; 85025; 81001; 80306; 87635; 70450; S4990 ×5; J2060 ×2

== ENCOUNTER 2021-06-29 17:16 | Emergency (ER) | payer MEDICARE ==
[2021-06-29] MEDS ORDERED: NICOTINE 14MG/24HR PATCH TRANSDERM STA (17:29)
--- NOTE | 2021-06-29 17:35 | ED ---
Psych HPI - General Stated Complaint: Suicidal Time Seen by Provider: 06/29/21 17:16 Source: patient, EMS, RN notes reviewed, old records reviewed Mode of arrival: EMS - History of Present Illness Initial Comments: 66-year-old female history dementia and chronic viral hepatitis hyperlipidemia history of GERD history of cerebral infarct/TIA who was sent in from [place] for feeling depressed and suicidal she apparently was found have a shoelace tied around her neck. She was evaluated petition inserted at the facility. Patient is uncooperative up this time. No reports of fevers chills nausea vomiting sweats or other symptoms. MD Complaint: suicidal ideation, feels depressed - Related Data Home Medications Medication Instructions Recorded Confirmed ALPRAZolam [Xanax] 0.25 mg PO Q8H PRN 11/06/20 06/29/21 Clopidogrel Bisulfate [Plavix] 75 mg PO DAILY 11/06/20 06/29/21 Donepezil HCl [Aricept] 10 mg PO HS 11/06/20 06/29/21 Ezetimibe [Zetia] 10 mg PO HS 11/06/20 06/29/21 Sertraline HCl [Zoloft] 100 mg PO DAILY 11/06/20 06/29/21 Topiramate [Topamax] 100 mg PO DAILY 11/06/20 06/29/21 traZODone HCL 100 mg PO HS 11/06/20 06/29/21 ALPRAZolam [Xanax] 0.25 mg PO BID@0800,199906/29/21 06/29/21 Acetaminophen [Acetaminophen 8 650 mg PO Q6H PRN 06/29/21 06/29/21 Hour] Divalproex [Depakote] 250 mg PO TID 06/29/21 06/29/21 Health Shake 1 can PO BID-W/MEALS 06/29/21 06/29/21 Melatonin 5 mg PO HS@199906/29/21 06/29/21 Memantine [Namenda] 5 mg PO DAILY 06/29/21 06/29/21 Pantoprazole [Protonix] 40 mg PO HS@199906/29/21 06/29/21 Sertraline HCl [Zoloft] 50 mg PO DAILY 06/29/21 06/29/21 Allergies Allergy/AdvReac Type Severity Reaction Status Date / Time No Known Allergies Allergy Verified 06/29/21 18:45 Review of Systems ROS Statement: Those systems with pertinent positive or pertinent negative responses have been documented in the HPI. ROS Other: All systems not noted in ROS Statement are negative. Past Medical History Past Medical History: CVA/TIA, GERD/Reflux, Hyperlipidemia, Liver Disease Additional Past Medical History / Comment(s): brain aneurysm; TIA; Hepatitis C; Dementia; Psychosis History of Any Multi-Drug Resistant Organisms: None Reported Past Surgical History: Back Surgery, Orthopedic Surgery Additional Past Surgical History / Comment(s): shunt placement, neck surgery, right knee Past Psychological History: No Psychological Hx Reported Smoking Status: Current every day smoker Past Alcohol Use History: Occasional Past Drug Use History: None Reported General Exam - General Exam Comments Initial Comments: This is a well-developed asthenic appearing female who is awake alert and cooperative General appearance: alert, anxious Head exam: Present: atraumatic, normocephalic, normal inspection Eye exam: Present: normal appearance, PERRL, EOMI. Absent: scleral icterus, conjunctival injection, periorbital swelling ENT exam: Present: normal exam, mucous membranes moist Neck exam: Present: normal inspection. Absent: tenderness, meningismus, ly mphadenopathy Respiratory exam: Present: normal lung sounds bilaterally. Absent: respiratory distress, wheezes, rales, rhonchi, stridor Cardiovascular Exam: Present: regular rate, normal rhythm, normal heart sounds. Absent: systolic murmur, diastolic murmur, rubs, gallop, clicks GI/Abdominal exam: Present: soft, normal bowel sounds. Absent: distended, tenderness, guarding, rebound, rigid Extremities exam: Present: normal inspection, full ROM, normal capillary refill. Absent: tenderness, pedal edema, joint swelling, calf tenderness Back exam: Present: normal inspection Neurological exam: Present: alert, CN II-XII intact, other (Patient is uncooperative for evaluation but does appear to be awake and alert) Psychiatric exam: Present: depressed, agitated, anxious, suicidal ideation Skin exam: Present: warm, dry, intact, normal color. Absent: rash Course Vital Signs 06/29/21 06/30/21 06/30/21 17:30 03:19 14:00 Temperature 97.5 F L Pulse Rate 64 69 88 Respiratory 18 16 18 Rate Blood Pressure 117/97 121/77 110/68 O2 Sat by Pulse 99 96 98 Oximetry 06/30/21 06/30/21 07/01/21 19:36 21:13 02:28 Temperature Pulse Rate 74 76 65 Respiratory 18 18 18 Rate Blood Pressure 115/71 116/72 105/69 O2 Sat by Pulse 98 97 99 Oximetry 07/01/21 07/01/21 07/01/21 06:15 18:00 18:15 Temperature 97.6 F 97.6 F Pulse Rate 54 L 69 Respiratory 18 19 18 Rate Blood Pressure 110/43 116/68 O2 Sat by Pulse 99 97 97 Oximetry 07/01/21 07/02/21 07/02/21 23:30 08:05 12:00 Temperature 97.7 F 97.9 F Pulse Rate 51 L 61 Respiratory 16 18 18 Rate Blood Pressure 99/56 100/61 O2 Sat by Pulse 99 99 Oximetry 07/02/21 07/02/21 07/03/21 15:00 20:00 07:33 Temperature 97.5 F L Pulse Rate 59 L 58 L Respiratory 18 18 18 Rate Blood Pressure 108/69 96/58 O2 Sat by Pulse 98 95 Oximetry 07/03/21 07/03/21 07/03/21 16:00 17:00 21:35 Temperature 97.8 F Pulse Rate 63 58 L 62 Respiratory 18 16 20 Rate Blood Pressure 100/68 92/62 103/55 O2 Sat by Pulse 97 Oximetry 07/04/21 07/04/21 07/06/21 06:34 20:21 08:00 Temperature 97.7 F 97.5 F L 98.2 F Pulse Rate 61 63 64 Respiratory 14 12 16 Rate Blood Pressure 98/59 100/64 102/65 O2 Sat by Pulse 99 97 97 Oximetry - Reevaluation(s) Reevaluation #1: 06/29/21 23:09 Patient's care is endorsed to Dr. Sainz at our shift change pending EPS evaluation Reevaluation #2: 07/05/21 08:22 Patient remains the patient in emergency department pending transfer for geriatric psychiatry. Appears be resting comfortably. No other issues reported at this time. She has been evaluated by psychiatry. Procedures - Restraint - Face to Face Restraint Occurrence 1 Patient's Immediate Situation: Endangers others' safety, Endangers staff safety, Violent behavior Patient's Reaction to the Intervention: Uncooperative, Angry, Hostile, Aggressive, Combative Patient's Medical & Behavioral Condition: Awake, Alert, Agitated, Depressed, Suicidal thoughts Need to Continue or Terminate Restraint or Seclusion: Continue Face to Face Eval of Restraint Date: 06/29/21 Face to Face Eval of Restraint Time: 17:42 Restraint Occurrence 2 Patient's Immediate Situation: Endangers others' safety, Endangers staff safety Patient's Reaction to the Intervention: Uncooperative Patient's Medical & Behavioral Condition: Awake, Agitated, Homicidal thoughts, Flight of ideas Need to Continue or Terminate Restraint or Seclusion: Continue Need to Continue or Terminate Restraint/Seclusion - Comment: Patient will be given chemical restraints that she remains agitated and a threat to staff members Face to Face Eval of Restraint Date: 06/29/21 Face to Face Eval of Restraint Time: 20:00 Medical Decision Making - Medical Decision Making Patient rested comfortably in emergency department today patient was evaluated by Dr. Shebly and was cyanotic be suicidal or homicidal at this time. Patient will be discharged back to her facility please see the recommendations from psychiatry. - Lab Data Result diagrams: 06/29/21 17:50 06/29/21 17:50 Lab Results 06/29/21 06/29/21 06/29/21 Range/Units 17:50 17:50 17:50 WBC 7.4 (3.8-10.6) k/uL RBC 4.31 (3.80-5.40) m/uL Hgb 13.4 (11.4-16.0) gm/dL Hct 43.9 (34.0-46.0) % MCV 101.9 H (80.0-100.0) fL MCH 31.1 (25.0-35.0) pg MCHC 30.5 L (31.0-37.0) g/dL RDW 13.4 (11.5-15.5) % Plt Count 176 (150-450) k/uL MPV 9.9 Neutrophils % 57 % Lymphocytes % 29 % Monocytes % 6 % Eosinophils % 6 % Basophils % 1 % Neutrophils # 4.2 (1.3-7.7) k/uL Lymphocytes # 2.1 (1.0-4.8) k/uL Monocytes # 0.5 (0-1.0) k/uL Eosinophils # 0.4 (0-0.7) k/uL Basophils # 0.1 (0-0.2) k/uL Macrocytosis Slight Sodium (137-145) mmol/L Potassium (3.5-5.1) mmol/L Chloride (98-107) mmol/L Carbon Dioxide (22-30) mmol/L Anion Gap mmol/L BUN (7-17) mg/dL Creatinine (0.52-1.04) mg/dL Est GFR (CKD-EPI)AfAm (>60 ml/min/1.73 sqM) Est GFR (CKD-EPI)NonAf (>60 ml/min/1.73 sqM) Glucose (74-99) mg/dL Calcium (8.4-10.2) mg/dL Magnesium (1.6-2.3) mg/dL Total Bilirubin (0.2-1.3) mg/dL AST (14-36) U/L ALT (4-34) U/L Alkaline Phosphatase (38-126) U/L Troponin I (0.000-0.034) ng/mL Total Protein (6.3-8.2) g/dL Albumin (3.5-5.0) g/dL Urine Color Yellow Urine Appearance Clear (Clear) Urine pH 6.5 (5.0-8.0) Ur Specific [place] 1.028 (1.001-1.035) Urine Protein Trace H (Negative) Urine Glucose (UA) Negative (Negative) Urine Ketones Negative (Negative) Urine Blood Negative (Negative) Urine Nitrite Negative (Negative) Urine Bilirubin Negative (Negative) Urine Urobilinogen 2.0 (<2.0) mg/dL Ur Leukocyte Esterase Negative (Negative) Urine Opiates Screen Not Detected (NotDetected) Ur Oxycodone Screen Not Detected (NotDetected) Urine Methadone Screen Not Detected (NotDetected) Ur Propoxyphene Screen Not Detected (NotDetected) Ur Barbiturates Screen Not Detected (NotDetected) U Tricyclic Antidepress Not Detected (NotDetected) Ur Phencyclidine Scrn Not Detected (NotDetected) Ur Amphetamines Screen Not Detected (NotDetected) U Methamphetamines Scrn Not Detected (NotDetected) U Benzodiazepines Scrn Detected H (NotDetected) Urine Cocaine Screen Not Detected (NotDetected) U Marijuana (THC) Screen Not Detected (NotDetected) Coronavirus (PCR) (Not Detectd) 06/29/21 06/29/21 06/30/21 Range/Units 17:50 17:50 01:48 WBC (3.8-10.6) k/uL RBC (3.80-5.40) m/uL Hgb (11.4-16.0) gm/dL Hct (34.0-46.0) % MCV (80.0-100.0) fL MCH (25.0-35.0) pg MCHC (31.0-37.0) g/dL RDW (11.5-15.5) % Plt Count (150-450) k/uL MPV Neutrophils % % Lymphocytes % % Monocytes % % Eosinophils % % Basophils % % Neutrophils # (1.3-7.7) k/uL Lymphocytes # (1.0-4.8) k/uL Monocytes # (0-1.0) k/uL Eosinophils # (0-0.7) k/uL Basophils # (0-0.2) k/uL Macrocytosis Sodium 143 (137-145) mmol/L Potassium 4.9 (3.5-5.1) mmol/L Chloride 111 H (98-107) mmol/L Carbon Dioxide 18 L (22-30) mmol/L Anion Gap 14 mmol/L BUN 26 H (7-17) mg/dL Creatinine 1.07 H (0.52-1.04) mg/dL Est GFR (CKD-EPI)AfAm 62 (>60 ml/min/1.73 sqM) Est GFR (CKD-EPI)NonAf 54 (>60 ml/min/1.73 sqM) Glucose 97 (74-99) mg/dL Calcium 9.1 (8.4-10.2) mg/dL Magnesium 2.2 (1.6-2.3) mg/dL Total Bilirubin 0.7 (0.2-1.3) mg/dL AST 29 (14-36) U/L ALT 14 (4-34) U/L Alkaline Phosphatase 69 (38-126) U/L Troponin I <0.012 (0.000-0.034) ng/mL Total Protein 8.2 (6.3-8.2) g/dL Albumin 4.6 (3.5-5.0) g/dL Urine Color Urine Appearance (Clear) Urine pH (5.0-8.0) Ur Specific [place] (1.001-1.035) Urine Protein (Negative) Urine Glucose (UA) (Negative) Urine Ketones (Negative) Urine Blood (Negative) Urine Nitrite (Negative) Urine Bilirubin (Negative) Urine Urobilinogen (<2.0) mg/dL Ur Leukocyte Esterase (Negative) Urine Opiates Screen (NotDetected) Ur Oxycodone Screen (NotDetected) Urine Methadone Screen (NotDetected) Ur Propoxyphene Screen (NotDetected) Ur Barbiturates Screen (NotDetected) U Tricyclic Antidepress (NotDetected) Ur Phencyclidine Scrn (NotDetected) Ur Amphetamines Screen (NotDetected) U Methamphetamines Scrn (NotDetected) U Benzodiazepines Scrn (NotDetected) Urine Cocaine Screen (NotDetected) U Marijuana (THC) Screen (NotDetected) Coronavirus (PCR) Not Detected (Not Detectd) Disposition Clinical Impression: Major neurocognitive disorder, Behavioral disorder Disposition: HOME SELF-CARE Condition: Good Instructions (If sedation given, give patient instructions): Mood Disorders (ED) Additional Instructions: See the EPS recommendations for medications Is patient prescribed a controlled substance at d/c from ED?: No Referrals: Kari Meadows DO [Primary Care Provider] - 1-2 days
[2021-06-29 18:02] LABS: Basophils # (A) 0.1 k/uL (0-0.2); Basophils % (A) 1 %; Eosinophils # (A) 0.4 k/uL (0-0.7); Eosinophils % (A) 6 %; HCT 43.9 % (34.0-46.0); HGB 13.4 gm/dL (11.4-16.0); Lymphocytes # (A) 2.1 k/uL (1.0-4.8); Lymphocytes % (A) 29 %; MCH 31.1 pg (25.0-35.0); MCHC 30.5 g/dL (31.0-37.0); MCV 101.9 fL (80.0-100.0); Macrocytosis Slight; Mean Platelet Volume 9.9; Monocytes # (A) 0.5 k/uL (0-1.0); Monocytes % (A) 6 %; Neutrophils # (A) 4.2 k/uL (1.3-7.7); Neutrophils % (A) 57 %; Platelet Count 176 k/uL (150-450); RBC 4.31 m/uL (3.80-5.40); RDW 13.4 % (11.5-15.5); WBC 7.4 k/uL (3.8-10.6)
[2021-06-29 18:16] LABS: Albumin 4.6 g/dL (3.5-5.0); Calcium 9.1 mg/dL (8.4-10.2); Magnesium 2.2 mg/dL (1.6-2.3); Potassium 4.9 mmol/L (3.5-5.1); Total Bilirubin 0.7 mg/dL (0.2-1.3); Total Protein 8.2 g/dL (6.3-8.2)
[2021-06-29 18:50] LABS: Appearance,Urine Clear (Clear); Bilirubin,Urine Negative (Negative); Blood,Urine Negative (Negative); Color,Urine Yellow; Glucose,Urine (UA) Negative (Negative); Ketones,Urine Negative (Negative); Leukocyte Esterase,Urine Negative (Negative); Nitrite,Urine Negative (Negative); PH, Urine 6.5 (5.0-8.0); Protein,Urine Trace (Negative); Specific Gravity,Urine 1.028 (1.001-1.035)
[2021-06-29 19:02] LABS: Amphetamine Screen,Urine Not Detected (NotDetected); Barbiturate Screen,Urine Not Detected (NotDetected); Benzodiazepines Screen,Urine Detected (NotDetected); Cocaine Screen,Urine Not Detected (NotDetected); Methadone Screen, Urine Not Detected (NotDetected); Opiate Screen,Urine Not Detected (NotDetected); Oxycodone Screen, Urine Not Detected (NotDetected); Phencyclidine Screen,Urine Not Detected (NotDetected); Tricyclic Antidepressant,Urine Not Detected (NotDetected); Urn Cannabinoid Scrn Not Detected (NotDetected)
[2021-06-29] MEDS ORDERED: HALOPERIDOL LACTATE 5 MG/ML 1 ML VIAL IM STA (22:00)
[2021-06-29] MEDS ORDERED: LORazepam 2 MG/ML INJ IM STA (22:00)
[2021-06-29] MEDS ORDERED: diphenhydrAMINE 50 MG/ML 1 ML VIAL IM STA (22:02)
[2021-07-01] MEDS ORDERED: MELATONIN 5 MG TABLET PO SCH (20:00)
[2021-07-01] MEDS ORDERED: PANTOPRAZOLE 40 MG TABLET PO SCH (20:00)
[2021-07-01] MEDS ORDERED: ACETAMINOPHEN TAB 325 MG TAB PO PRN (20:08)
[2021-07-01] MEDS ORDERED: ALPRAZolam 0.25 MG TAB PO PRN (20:08)
[2021-07-01] MEDS: TOPIRAMATE 100 MG TAB PO SCH (20:29)
[2021-07-01] MEDS: CLOPIDOGREL 75 MG TAB PO SCH (20:30)
[2021-07-01] MEDS: MEMANTINE 5 MG TAB PO SCH (20:30)
[2021-07-01] MEDS: SERTRALINE 100 MG TAB PO SCH (20:30)
[2021-07-01] MEDS: SERTRALINE 50 MG TAB PO SCH (20:30)
[2021-07-01] MEDS ORDERED: DONEPEZIL 10 MG TAB PO SCH (21:00)
[2021-07-01] MEDS ORDERED: traZODone HCL 100 MG TAB PO SCH (21:00)
[2021-07-01] MEDS ORDERED: EZETIMIBE 10 MG TAB PO SCH (21:00)
[2021-07-01] MEDS: DIVALPROEX 250 MG TABLET.DR PO SCH (22:29)
[2021-07-02] MEDS ORDERED: ALPRAZolam 0.25 MG TAB PO SCH (08:00)
[2021-07-02] MEDS: SERTRALINE 100 MG TAB PO SCH (08:10)
[2021-07-02] MEDS: MEMANTINE 5 MG TAB PO SCH (08:10)
[2021-07-02] MEDS: CLOPIDOGREL 75 MG TAB PO SCH (08:10)
[2021-07-02] MEDS: SERTRALINE 50 MG TAB PO SCH (08:10)
[2021-07-02] MEDS: TOPIRAMATE 100 MG TAB PO SCH (08:10)
[2021-07-02] MEDS: DIVALPROEX 250 MG TABLET.DR PO SCH ×3 (11:01→23:31)
[2021-07-02] MEDS ORDERED: ALPRAZolam 0.25 MG TAB PO PRN (14:14)
[2021-07-02] MEDS ORDERED: ACETAMINOPHEN TAB 325 MG TAB PO PRN (14:16)
[2021-07-02] MEDS: MELATONIN 5 MG TABLET PO SCH (20:01)
[2021-07-02] MEDS: DONEPEZIL 10 MG TAB PO SCH (20:01)
[2021-07-02] MEDS: EZETIMIBE 10 MG TAB PO SCH (20:02)
[2021-07-02] MEDS: PANTOPRAZOLE 40 MG TABLET PO SCH (20:02)
[2021-07-02] MEDS: traZODone HCL 100 MG TAB PO SCH (20:02)
[2021-07-02] MEDS: ALPRAZolam 0.25 MG TAB PO SCH (23:31)
[2021-07-03] MEDS: SERTRALINE 50 MG TAB PO SCH (09:12)
[2021-07-03] MEDS: SERTRALINE 100 MG TAB PO SCH (09:12)
[2021-07-03] MEDS: DIVALPROEX 250 MG TABLET.DR PO SCH ×3 (09:12→21:55)
[2021-07-03] MEDS: MEMANTINE 5 MG TAB PO SCH (09:12)
[2021-07-03] MEDS: CLOPIDOGREL 75 MG TAB PO SCH (09:12)
[2021-07-03] MEDS: ALPRAZolam 0.25 MG TAB PO SCH ×2 (09:12→21:54)
[2021-07-03] MEDS: TOPIRAMATE 100 MG TAB PO SCH (09:12)
--- NOTE | 2021-07-03 14:11 | P.CN ---
Psychiatric Consult - . Consult date: 07/03/21 Consult:: 07/03/21 14:10 IDENTIFYING DATA: This patient is a 66-year-old female with significant history of major neurocognitive disorder, CVA/TIA, hyperlipidemia, and liver disease who presents to the hospital for suicidal ideation HISTORY OF PRESENT ILLNESS: The patient presented to the hospital on 06/29/2021, brought into the hospital by EMS for psychiatric evaluation as the patient reported that she was depressed and suicidal and was found to have had a shoelace around her neck. Patient was petitioned. Upon evaluation in the emergency department, the patient does admit to suicidal thoughts. She expresses that she has no reason to live and just wants to end things. She does admit that she wants to . She reports that she has "tried everything, pills, all sorts of psychology, and nothing works." The patient is fixated on getting a cigarette to smoke however is not amenable to any Nicorette gum for nicotine patches. When asked about her symptoms and depression, the patient refuses to elaborate. She refused to participate in a psychiatric evaluation. She states that she just wants to and is tired of the questions. PAST PSYCHIATRIC HISTORY: Patient has a significant history of major neurocognitive disorder with behavioral disturbance. Patient is currently on a regimen of Xanax, trazodone, Topamax, Zoloft, Namenda, and Depakote. The patient was last evaluated in our emergency department in November 2020 however she was cleared psychiatrically for discharge back to [facility] or with family. Patient states that she does not follow up with any outpatient psychiatrist and therapist. The patient reports that she has attempted suicide in the past however refused to elaborate. PAST MEDICAL HISTORY: Past Medical History: CVA/TIA, GERD/Reflux, Hyperlipidemia, Liver Disease Additional Past Medical History / Comment(s): brain aneurysm; TIA; Hepatitis C; Dementia; Psychosis History of Any Multi-Drug Resistant Organisms: None Reported Past Surgical History: Back Surgery, Orthopedic Surgery Additional Past Surgical History / Comment(s): shunt placement, neck surgery, right knee Past Psychological History: No Psychological Hx Reported Smoking Status: Current every day smoker Past Alcohol Use History: Occasional Past Drug Use History: None Reported ALLERGIES: NO KNOWN DRUG ALLERGIES CHEMICAL DEPENDENCY HISTORY: Patient is a current every day smoker. Occasional alcohol use. No reported drug use. FAMILY PSYCHIATRIC/SUBSTANCE USE HISTORY: Unable to obtain SOCIAL HISTORY: Unable to obtain, however from previous assessment by Dr. Jackman in November 2020, the patient was born and raised in [place]. 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 MENTAL STATUS EXAM: General Appearance: Patient appears to be stated age is, with fair hygiene and grooming, however irritable and ornery on approach. Behavior: Patient is calmly lying in bed without any agitated behavior. Speech: Patient's speech is fluent and nonpressured. Mood/Affect: Patient reports their mood is "there is no point in anything. Just let me ", affect is dysphoric and irritable. Suicidality/Homicidality: Patient endorses suicidal ideation and intention. She reports no homicidal ideation. Perceptions: Patient denies any visual hallucinations and denies any auditory hallucinations Though content/process: There is no evidence of any delusional thought content and thought process is linear and goal-directed. Memory and concentration: The patient is alert and oriented to person only. Concentration appears to be grossly poor. Judgment and insight: poor Vital Signs Temp 97.5 F L 07/02/21 20:00 Pulse 58 L 07/03/21 07:33 Resp 18 07/03/21 07:33 BP 96/58 07/03/21 07:33 Pulse Ox 95 07/03/21 07:33 Laboratory Results WBC 7.4 k/uL (3.8-10.6) 06/29/21 17:50 RBC 4.31 m/uL (3.80-5.40) 06/29/21 17:50 Hgb 13.4 gm/dL (11.4-16.0) 06/29/21 17:50 Hct 43.9 % (34.0-46.0) 06/29/21 17:50 MCV 101.9 fL (80.0-100.0) H 06/29/21 17:50 MCH 31.1 pg (25.0-35.0) 06/29/21 17:50 MCHC 30.5 g/dL (31.0-37.0) L 06/29/21 17:50 RDW 13.4 % (11.5-15.5) 06/29/21 17:50 Plt Count 176 k/uL (150-450) 06/29/21 17:50 MPV 9.9 06/29/21 17:50 Neutrophils % 57 % 06/29/21 17:50 Lymphocytes % 29 % 06/29/21 17:50 Monocytes % 6 % 06/29/21 17:50 Eosinophils % 6 % 06/29/21 17:50 Basophils % 1 % 06/29/21 17:50 Neutrophils # 4.2 k/uL (1.3-7.7) 06/29/21 17:50 Lymphocytes # 2.1 k/uL (1.0-4.8) 06/29/21 17:50 Monocytes # 0.5 k/uL (0-1.0) 06/29/21 17:50 Eosinophils # 0.4 k/uL (0-0.7) 06/29/21 17:50 Basophils # 0.1 k/uL (0-0.2) 06/29/21 17:50 Macrocytosis Slight 06/29/21 17:50 Sodium 143 mmol/L (137-145) 06/29/21 17:50 Potassium 4.9 mmol/L (3.5-5.1) 06/29/21 17:50 Chloride 111 mmol/L (98-107) H 06/29/21 17:50 Carbon Dioxide 18 mmol/L (22-30) L 06/29/21 17:50 Anion Gap 14 mmol/L 06/29/21 17:50 BUN 26 mg/dL (7-17) H 06/29/21 17:50 Creatinine 1.07 mg/dL (0.52-1.04) H 06/29/21 17:50 Est GFR (CKD-EPI)AfAm 62 (>60 ml/min/1.73 sqM) 06/29/21 17:50 Est GFR (CKD-EPI)NonAf 54 (>60 ml/min/1.73 sqM) 06/29/21 17:50 Glucose 97 mg/dL (74-99) 06/29/21 17:50 Calcium 9.1 mg/dL (8.4-10.2) 06/29/21 17:50 Magnesium 2.2 mg/dL (1.6-2.3) 06/29/21 17:50 Total Bilirubin 0.7 mg/dL (0.2-1.3) 06/29/21 17:50 AST 29 U/L (14-36) 06/29/21 17:50 ALT 14 U/L (4-34) 06/29/21 17:50 Alkaline Phosphatase 69 U/L (38-126) 06/29/21 17:50 Troponin I <0.012 ng/mL (0.000-0.034) 06/29/21 17:50 Total Protein 8.2 g/dL (6.3-8.2) 06/29/21 17:50 Albumin 4.6 g/dL (3.5-5.0) 06/29/21 17:50 Urine Color Yellow 06/29/21 17:50 Urine Appearance Clear (Clear) 06/29/21 17:50 Urine pH 6.5 (5.0-8.0) 06/29/21 17:50 Ur Specific [place] 1.028 (1.001-1.035) 06/29/21 17:50 Urine Protein Trace (Negative) H 06/29/21 17:50 Urine Glucose (UA) Negative (Negative) 06/29/21 17:50 Urine Ketones Negative (Negative) 06/29/21 17:50 Urine Blood Negative (Negative) 06/29/21 17:50 Urine Nitrite Negative (Negative) 06/29/21 17:50 Urine Bilirubin Negative (Negative) 06/29/21 17:50 Urine Urobilinogen 2.0 mg/dL (<2.0) 06/29/21 17:50 Ur Leukocyte Esterase Negative (Negative) 06/29/21 17:50 Urine Opiates Screen Not Detected (NotDetected) 06/29/21 17:50 Ur Oxycodone Screen Not Detected (NotDetected) 06/29/21 17:50 Urine Methadone Screen Not Detected (NotDetected) 06/29/21 17:50 Ur Propoxyphene Screen Not Detected (NotDetected) 06/29/21 17:50 Ur Barbiturates Screen Not Detected (NotDetected) 06/29/21 17:50 U Tricyclic Antidepress Not Detected (NotDetected) 06/29/21 17:50 Ur Phencyclidine Scrn Not Detected (NotDetected) 06/29/21 17:50 Ur Amphetamines Screen Not Detected (NotDetected) 06/29/21 17:50 U Methamphetamines Scrn Not Detected (NotDetected) 06/29/21 17:50 U Benzodiazepines Scrn Detected (NotDetected) H 06/29/21 17:50 Urine Cocaine Screen Not Detected (NotDetected) 06/29/21 17:50 U Marijuana (THC) Screen Not Detected (NotDetected) 06/29/21 17:50 Coronavirus (PCR) Not Detected (Not Detectd) 06/30/21 01:48 IMPRESSIONS: Major depressive disorder, recurrent, severe Major neurocognitive disorder, with behavioral disturbances PLAN: -At this time patient DOES meet criteria for inpatient geriatric psychiatric admission. The patient does endorse suicidal ideation with a plan to kill herself by hanging. She is adamant that she wants to kill herself. The patient may also benefit from possible TMS services. -Delirium precautions recommended with patient including - avoiding use of narcotics and TOBACCO STRIPPER sedatives, limit anticholinergic medications when possible, frequent re-orientation, minimize use of restraints, open window shades during the day and close them at night -Would recommend the following medication changes/additions: Continue xanx prn for anxiety Continue Zoloft 150 mg by mouth daily for depression/anxiety Continue trazodone 100 mg by mouth at bedtime for insomnia Continue Depakote 250 mg by mouth 3 times a day for mood stabilization. The patient does have an elevated BUN/creatinine and therefore we will not start lithium. [place] would've been beneficial to address the patient's chronic suicidality. Continue donepezil and Namenda for major neurocognitive disorder -Continue 1:1 sitter for safety -Cannot leave AMA at this time. Patient will need a petition and certification if attempting to leave AMA. -Will continue to follow along -When medically stable, patient is eligible for transfer to a geriatric psych bed when available. 07/03/21 14:10
[2021-07-03] MEDS: traZODone HCL 100 MG TAB PO SCH (21:54)
[2021-07-03] MEDS: PANTOPRAZOLE 40 MG TABLET PO SCH (21:54)
[2021-07-03] MEDS: EZETIMIBE 10 MG TAB PO SCH (21:54)
[2021-07-03] MEDS: MELATONIN 5 MG TABLET PO SCH (21:54)
[2021-07-03] MEDS: DONEPEZIL 10 MG TAB PO SCH (21:54)
[2021-07-04] MEDS: ALPRAZolam 0.25 MG TAB PO SCH ×2 (08:58→20:19)
[2021-07-04] MEDS: DIVALPROEX 250 MG TABLET.DR PO SCH ×3 (08:58→20:13)
[2021-07-04] MEDS: SERTRALINE 100 MG TAB PO SCH (08:59)
[2021-07-04] MEDS: TOPIRAMATE 100 MG TAB PO SCH (08:59)
[2021-07-04] MEDS: MEMANTINE 5 MG TAB PO SCH (08:59)
[2021-07-04] MEDS: SERTRALINE 50 MG TAB PO SCH (08:59)
[2021-07-04] MEDS: CLOPIDOGREL 75 MG TAB PO SCH (08:59)
--- NOTE | 2021-07-04 15:12 | P.PN ---
Progress Note - Text Progress Note Date: 07/04/21 Interval History: Patient was seen resting in bed and was directable and agreeable to speak with investigative writer. He continues to be very labile and upset. She continues to endorse suicidal ideation. As per report from the patient's EPS nurse, the patient attempted to tie a noose again around her neck after talking with her daughter over the phone. The patient is fixated on being able to smoke a cigarette. She is not amenable to alternative such as Nicorette gum or nicotine patches. She continues to be very labile and verbally agitated. She is alert and oriented to person only. Mental Status Exam: General Appearance: Patient appears to be stated age is, with fair hygiene and grooming, however irritable and ornery on approach. Behavior: Patient displays psychomotor agitation. Speech: Patient's speech is fluent and nonpressured. Mood/Affect: Patient reports their mood is "he just need to give me a cigarette and otherwise this is bullsh*t", affect is dysphoric and irritable. Suicidality/Homicidality: Patient endorses suicidal ideation and intention. She reports no homicidal ideation. Perceptions: Patient denies any visual hallucinations and denies any auditory hallucinations Though content/process: There is no evidence of any delusional thought content and thought process is linear and goal-directed. Memory and concentration: The patient is alert and oriented to person only. Concentration appears to be grossly poor. Judgment and insight: poor Vital Signs Temp 97.7 F 07/04/21 06:34 Pulse 61 07/04/21 06:34 Resp 14 07/04/21 06:34 BP 98/59 07/04/21 06:34 Pulse Ox 99 07/04/21 06:34 Assessment Major depressive disorder, recurrent, severe Major neurocognitive disorder, with behavioral disturbances Plan: -At this time patient DOES meet criteria for inpatient geriatric psychiatric admission. The patient does endorse suicidal ideation with a plan to kill herself by hanging. She is adamant that she wants to kill herself. The patient may also benefit from possible TMS services. -Delirium precautions recommended with patient including - avoiding use of narcotics and [employer]ORAGE [employer] sedatives, limit anticholinergic medications when possible, frequent re-orientation, minimize use of restraints, open window shades during the day and close them at night -Would recommend the following medication changes/additions: Continue xanx prn for anxiety Increase Zoloft to 175 mg by mouth daily for depression/anxiety Continue trazodone 100 mg by mouth at bedtime for insomnia Continue Depakote 250 mg by mouth 3 times a day for mood stabilization. Continue donepezil and Namenda for major neurocognitive disorder -Continue 1:1 sitter for safety -Cannot leave AMA at this time. Patient will need a petition and certification if attempting to leave AMA. -Will continue to follow along -When medically stable, patient is eligible for transfer to a geriatric psych bed when available.
[2021-07-04] MEDS: MELATONIN 5 MG TABLET PO SCH (20:13)
[2021-07-04] MEDS: traZODone HCL 100 MG TAB PO SCH (20:13)
[2021-07-04] MEDS: DONEPEZIL 10 MG TAB PO SCH (20:13)
[2021-07-04] MEDS: PANTOPRAZOLE 40 MG TABLET PO SCH (20:13)
[2021-07-04] MEDS: EZETIMIBE 10 MG TAB PO SCH (20:13)
[2021-07-05] MEDS: ALPRAZolam 0.25 MG TAB PO SCH (09:33)
[2021-07-05] MEDS: MEMANTINE 5 MG TAB PO SCH (09:34)
[2021-07-05] MEDS: SERTRALINE 25 MG TAB PO SCH (09:34)
[2021-07-05] MEDS: DIVALPROEX 250 MG TABLET.DR PO SCH ×2 (09:34→18:49)
[2021-07-05] MEDS: CLOPIDOGREL 75 MG TAB PO SCH (09:34)
[2021-07-05] MEDS: TOPIRAMATE 100 MG TAB PO SCH (09:35)
[2021-07-05] MEDS: SERTRALINE 100 MG TAB PO SCH (09:35)
--- NOTE | 2021-07-05 14:22 | P.PN ---
Progress Note - Text Progress Note Date: 07/05/21 Interval History: Patient was seen resting in bed and was directable and agreeable to speak with jingle writer. The patient is currently denying any suicidal or homicidal ideation, intention, and/or plan today. She is currently denying any auditory or visual hallucinations. She reports no paranoia or other delusions. She continues to have poor insight into her condition. She is able to identify that she is in a hospital but is unable to identify what city or year it is. She is alert and oriented to self only. She reports no issues with her sleep or her appetite. She denies any side effects of her medications. She reports that she is enjoying watching her TV. Mental Status Exam: General Appearance: Patient appears to be stated age, with fair hygiene and grooming, and is alert and cooperative for the psychiatric interview. Behavior: Patient displays normal psychomotor activity. Speech: Patient's speech is fluent and nonpressured. Mood/Affect: Patient reports their mood is "feeling good", affect is intense however appears to be euthymic today. Suicidality/Homicidality: Patient denies any suicidal or homicidal ideation. Perceptions: Patient denies any visual hallucinations and denies any auditory hallucinations Though content/process: There is no evidence of any delusional thought content and thought process is linear and goal-directed. Memory and concentration: The patient is alert and oriented to person only. Concentration appears to be grossly poor. Judgment and insight: poor Vital Signs Temp 97.5 F L 07/04/21 20:21 Pulse 63 07/04/21 20:21 Resp 12 07/04/21 20:21 BP 100/64 07/04/21 20:21 Pulse Ox 97 07/04/21 20:21 Assessment Major depressive disorder, recurrent, severe Major neurocognitive disorder, with behavioral disturbances Plan: -At this time patient DOES meet criteria for inpatient geriatric psychiatric admission. The patient d endorse id suicidal ideation with a plan to kill herself by hanging yesterday. The patient may also benefit from possible TMS services. We will reevaluate the patient again tomorrow to see if she continues to display significant improvement in regards to mood and we will reassess the need for inpatient psychiatric care. -Delirium precautions recommended with patient including - avoiding use of narcotics and [employer]ION sedatives, limit anticholinergic medications when possible, frequent re-orientation, minimize use of restraints, open window shades during the day and close them at night -Would recommend the following medication changes/additions: Continue xanx prn for anxiety Continue Zoloft 175 mg by mouth daily for depression/anxiety Continue trazodone 100 mg by mouth at bedtime for insomnia Continue Depakote 250 mg by mouth 3 times a day for mood stabilization. Continue donepezil and Namenda for major neurocognitive disorder -Continue 1:1 sitter for safety -Cannot leave AMA at this time. Patient will need a petition and certification if attempting to leave AMA. -Will continue to follow along -When medically stable, patient is eligible for transfer to a geriatric psych bed when available.
[2021-07-06] MEDS: DIVALPROEX 250 MG TABLET.DR PO SCH ×2 (01:42→07:57)
[2021-07-06] MEDS: PANTOPRAZOLE 40 MG TABLET PO SCH (01:43)
[2021-07-06] MEDS: MELATONIN 5 MG TABLET PO SCH (01:43)
[2021-07-06] MEDS: ALPRAZolam 0.25 MG TAB PO SCH ×2 (01:43→07:57)
[2021-07-06] MEDS: DONEPEZIL 10 MG TAB PO SCH (01:44)
[2021-07-06] MEDS: EZETIMIBE 10 MG TAB PO SCH (01:44)
[2021-07-06] MEDS: traZODone HCL 100 MG TAB PO SCH (01:44)
[2021-07-06] MEDS: TOPIRAMATE 100 MG TAB PO SCH (07:58)
[2021-07-06] MEDS: SERTRALINE 25 MG TAB PO SCH (07:58)
[2021-07-06] MEDS: CLOPIDOGREL 75 MG TAB PO SCH (07:58)
[2021-07-06] MEDS: MEMANTINE 5 MG TAB PO SCH (07:58)
[2021-07-06 08:03] VITALS: TEMP 98.2
[2021-07-06] MEDS: SERTRALINE 100 MG TAB PO SCH (11:28)
--- NOTE | 2021-07-06 13:45 | P.PN ---
Progress Note - Text Progress Note Date: 07/06/21 Interval History: Patient was seen resting in bed and was directable and agreeable to speak with program writer. The patient is currently denying any suicidal or homicidal ideation, intention, and/or plan today. She is currently denying any auditory or visual hallucinations. She reports no paranoia or other delusions. She continues to have poor insight into her condition. She is able to identify that she is in a hospital but is unable to identify what city or year it is. She is alert and oriented to self only. She reports no issues with her sleep or her appetite. She denies any side effects of her medications. She reports that she is enjoying watching her TV. Mental Status Exam: General Appearance: Patient appears to be stated age, with fair hygiene and grooming, and is alert and cooperative, and polite, for the psychiatric interview. Behavior: Patient displays normal psychomotor activity. Speech: Patient's speech is fluent and nonpressured. Mood/Affect: Patient reports their mood is "doing okay", affect appears to be euthymic. Suicidality/Homicidality: Patient denies any suicidal or homicidal ideation. Perceptions: Patient denies any visual hallucinations and denies any auditory hallucinations Though content/process: There is no evidence of any delusional thought content and thought process is linear and goal-directed. Memory and concentration: The patient is alert and oriented to person only. Concentration appears to be grossly poor. Judgment and insight: poor at baseline Assessment Major depressive disorder, recurrent, severe Major neurocognitive disorder, with behavioral disturbances Plan: -The patient has presented as stable over the last 48 hours. Staff have noted no suicidal gestures or agitated behaviors. She has been calm and cooperative and has been adherent with her medications. At this time, the patient is not presenting with criteria for inpatient psychiatric admission and is not reporting any suicidal or homicidal ideation, intention, and/or plan at this time. We recommend continued outpatient care. Patient is cleared psychiatrically for discharge. -Delirium precautions recommended with patient including - avoiding use of narcotics and PAN HELPER sedatives, limit anticholinergic medications when possible, frequent re-orientation, minimize use of restraints, open window shades during the day and close them at night -Would recommend the following medication changes/additions: Continue xanx prn for anxiety Continue Zoloft 175 mg by mouth daily for depression/anxiety Continue trazodone 100 mg by mouth at bedtime for insomnia Continue Depakote 250 mg by mouth 3 times a day for mood stabilization. Continue donepezil and Namenda for major neurocognitive disorder -Psychiatry will sign off at this time. Please consult us with any questions or concerns.
[2021-07-06 15:44] VITALS: BP 104/70; PULSE 65; RESP 18
== END 2021-07-06 15:38 | disposition home or self-care (01) ==
LOC: EC 17:16
DX: F01.51 Vascular dementia, unspecified severity, with behavioral disturbance (principal); F91.9 Conduct disorder, unspecified; F33.9 Major depressive disorder, recurrent, unspecified; R45.851 Suicidal ideations; F17.200 Nicotine dependence, unspecified, uncomplicated; E78.5 Hyperlipidemia, unspecified; K21.9 Gastro-esophageal reflux disease without esophagitis; Z86.73 Personal history of transient ischemic attack (TIA), and cerebral infarction without residual deficits; Z79.899 Other long term (current) drug therapy; Z79.02 Long term (current) use of antithrombotics/antiplatelets; Z20.822 Contact with and (suspected) exposure to COVID-19
CPT/HCPCS: 82075; 36415; 80053; 83735; 84484; 85025; 81003; 80306; 87635; 99285; 96372; J2060; J1200

== ENCOUNTER 2022-04-08 03:58 | Emergency (ER) | payer MEDICARE ==
[2022-04-08 04:53] VITALS: RESP 16
--- NOTE | 2022-04-08 05:08 | CT ---
EXAMINATION TYPE: CT brain cspine wo con DATE OF EXAM: 04/08/2022 COMPARISON: 11/06/2020 HISTORY: Fall CT DLP: 1306 mGycm Automated exposure control for dose reduction was used. Images of the brain and cervical spine obtained with no contrast. There are surgical clips apparently from aneurysm surgery at the right-sided [place]. There is encephalomalacia right temporal lobe. There is some 4 x 2 cm hypodensity in the medial right front al lobe consistent with encephalomalacia. There is right-sided ventricular shunt catheter with tip in the right lateral ventricle. No significant hydrocephalus. There is patchy hypodensity in the perive ntricular white matter. There is 3 x 1 cm hypodensity in the cortex and white matter right parietal l obe. There is similar hypodensity in both posterior frontal lobe. There is right temporal craniotomy defect. There is plate with screws fusing anteriorly the cervical spine from C5 to C7. The posterior element are intact. There is mild multilevel cervical facet arthropathy. No compression fracture. No subluxat ion. IMPRESSION: There is multiple areas of encephalomalacia similar to old exam. No acute intracranial abnormality. P revious surgery. Previous cervical spine fusion surgery. No fracture. Cervical spine not changed compared to old CT sc an of 12/05/2018.
--- NOTE | 2022-04-08 06:11 | ED ---
Head Injury HPI - General Chief complaint: Head Injury Stated complaint: Fall Time Seen by Provider: 04/08/22 04:14 Source: patient Mode of arrival: EMS Limitations: no limitations - History of Present Illness MD Complaint: head injury -: minutes(s) Mechanism of Injury: mechanical fall Location: occipital Loss of Consciousness: no Previous Trauma to this Area: No Place: home Radiation: none Severity: mild Quality: dull Consistency: constant Provoking factors: none known Other Injuries: none - Related Data Home Medications Medication Instructions Recorded Confirmed ALPRAZolam [Xanax] 0.25 mg PO Q8H PRN 11/06/20 06/29/21 Clopidogrel Bisulfate [Plavix] 75 mg PO DAILY 11/06/20 06/29/21 Donepezil HCl [Aricept] 10 mg PO HS 11/06/20 06/29/21 Ezetimibe [Zetia] 10 mg PO HS 11/06/20 06/29/21 Sertraline HCl [Zoloft] 100 mg PO DAILY 11/06/20 06/29/21 Topiramate [Topamax] 100 mg PO DAILY 11/06/20 06/29/21 traZODone HCL 100 mg PO HS 11/06/20 06/29/21 ALPRAZolam [Xanax] 0.25 mg PO BID@799,199906/29/21 06/29/21 Acetaminophen [Acetaminophen 8 650 mg PO Q6H PRN 06/29/21 06/29/21 Hour] Divalproex [Depakote] 250 mg PO TID 06/29/21 06/29/21 Health Shake 1 can PO BID-W/MEALS 06/29/21 06/29/21 Melatonin 5 mg PO HS@199906/29/21 06/29/21 Memantine [Namenda] 5 mg PO DAILY 06/29/21 06/29/21 Pantoprazole [Protonix] 40 mg PO HS@199906/29/21 06/29/21 Sertraline HCl [Zoloft] 50 mg PO DAILY 06/29/21 06/29/21 Allergies/Adverse reactions: Allergies Allergy/AdvReac Type Severity Reaction Status Date / Time No Known Allergies Allergy Verified 04/08/22 04:01 Review of Systems ROS Statement: Those systems with pertinent positive or pertinent negative responses have been documented in the HPI. ROS Other: All systems not noted in ROS Statement are negative. Constitutional: Denies: fever, chills Respiratory: Denies: cough, dyspnea Cardiovascular: Denies: chest pain Gastrointestinal: Denies: abdominal pain, vomiting Musculoskeletal: Denies: back pain Skin: Denies: rash Neurological: Reports: headache. Denies: weakness, numbness, confusion Past Medical History Past Medical History: CVA/TIA, GERD/Reflux, Hyperlipidemia, Liver Disease Additional Past Medical History / Comment(s): brain aneurysm; TIA; Hepatitis C; Dementia; Psychosis History of Any Multi-Drug Resistant Organisms: None Reported Past Surgical History: Back Surgery, Orthopedic Surgery Additional Past Surgical History / Comment(s): shunt placement, neck surgery, right knee Past Psychological History: No Psychological Hx Reported Smoking Status: Current every day smoker Past Alcohol Use History: Occasional Past Drug Use History: None Reported General Exam Limitations: no limitations General appearance: alert, in no apparent distress Head exam: Present: atraumatic, normocephalic Eye exam: Present: normal appearance. Absent: scleral icterus, conjunctival injection Neck exam: Present: normal inspection, tenderness, full ROM Respiratory exam: Present: normal lung sounds bilaterally. Absent: respiratory distress, wheezes, rales, rhonchi, stridor Cardiovascular Exam: Present: regular rate, normal rhythm, normal heart sounds. Absent: systolic murmur, diastolic murmur, rubs, gallop GI/Abdominal exam: Present: soft. Absent: distended, tenderness, guarding, rebound Extremities exam: Present: normal inspection, normal capillary refill. Absent: pedal edema, calf tenderness Back exam: Present: normal inspection. Absent: CVA tenderness (R), CVA tenderness (L), vertebral tenderness Neurological exam: Present: alert, oriented X3, CN II-XII intact. Absent: motor sensory deficit Skin exam: Present: warm, dry, intact, normal color. Absent: rash Course Vital Signs 04/08/22 04/08/22 04:03 07:01 Temperature 98.2 F 97.9 F Pulse Rate 69 83 Respiratory 16 16 Rate Blood Pressure 110/56 120/93 O2 Sat by Pulse 98 98 Oximetry Medical Decision Making - Medical Decision Making This patient is a 67-year-old woman who is here after a ground-level fall. She is having some headache associated and therefore sent to have computed tomography scan I interpreted the CT scanner as being negative for any acute injury. Patient feels she is back at baseline and stable for discharge Was pt. sent in by a medical professional or institution? @ -no Did you speak to anyone other than the patient for history? @ -[no Did you review nursing and triage notes? @ -[agree Were old charts reviewed? @ -[No Differential Diagnosis? @ -[Differential diagnosis is acute traumatic head injury EKG interpreted by me (3pts min.)? @ -no X-rays interpreted by me (1pt min.)? @ -no CT interpreted by me (1pt min.)? @ -[see chart U/S interpreted by me (1pt. min.)? @ -[none] What testing was considered but not performed? (CT, X-rays, U/S, labs)? Why? @ [CT, X-rays, U/S, labs? Why?] What meds were considered but not given? Why? @ -[none] Did you discuss the management of the patient with other professionals? @ -[no] Did you reconcile home meds? @ -[none] Was smoking cessation discussed for >3mins.? @ -[none] Was critical care preformed (if so, how long)? @ -[none] Were there social determinants of health that impacted care today? How? (Homelessness, low income, unemployed, alcoholism, drug addiction, transportation, low edu. Level, literacy, decrease access to med. care, nursing home, r ehab)? @ -[none] Was there de-escalation of care discussed even if they declined? (Discuss DNR or withdrawal of care, Hospice)? @ -[no] What co-morbidities impacted this encounter? (DM, HTN, Smoking, COPD, CAD, Cancer, CVA, Hep., AIDS, mental health diagnosis, sleep apnea, morbid obesity)? @ -[ Was patient admitted / discharged? @ -[Discharge Undiagnosed new problem with uncertain prognosis? @ -[none] Drug Therapy requiring intensive monitoring for toxicity (Heparin, Nitro, Insulin, Cardizem)? @ -[none] Were any procedures done? @ -[none] Diagnosis/symptom? @ -[Head injury Acute, or Chronic, or Acute on Chronic? @ -[Acute Uncomplicated (without systemic symptoms) or Complicated (systemic symptoms)? @ -[Uncomplicated] Side effects of treatment? @ -[none] Exacerbation, Progression, or Severe Exacerbation] @ -[no] Poses a threat to life or bodily function? @ -[no] Disposition Clinical Impression: Closed head injury Disposition: HOME SELF-CARE Condition: Good Instructions (If sedation given, give patient instructions): Head Injury (ED) Is patient prescribed a controlled substance at d/c from ED?: No Referrals: Daxa Richardson DO [Primary Care Provider] - 1-2 days
[2022-04-08 07:02] VITALS: BP 120/93; PULSE 83; TEMP 97.9
== END 2022-04-08 07:17 | disposition home or self-care (01) ==
LOC: EC 03:58
DX: S09.90XA Unspecified injury of head, initial encounter (principal); K21.9 Gastro-esophageal reflux disease without esophagitis; F17.200 Nicotine dependence, unspecified, uncomplicated; Z79.899 Other long term (current) drug therapy; W01.198A Fall on same level from slipping, tripping and stumbling with subsequent striking against other object, initial encounter
CPT/HCPCS: 70450; 72125; 99285

== ENCOUNTER 2022-04-10 05:57 | Emergency (ER) | payer MEDICARE ==
[2022-04-10] MEDS ORDERED: ACETAMINOPHEN TAB 500 MG TAB PO STA (06:18)
--- NOTE | 2022-04-10 06:37 | XR ---
EXAMINATION TYPE: XR chest 1V portable DATE OF EXAM: 04/10/2022 COMPARISON: Chest x-ray December 05, 2018 HISTORY: Fever. TECHNIQUE: Single frontal view of the chest is obtained. FINDINGS: There is some chronic parenchymal changes bilaterally without suspicious new focal air spa ce opacity, pleural effusion, or pneumothorax seen. The cardiac silhouette size is stable and within normal limits. Anterior fusion plate in the cervical spine is redemonstrated. Overlying ventricular shunt catheter redemonstrated. IMPRESSION: No new acute pulmonary process.
--- NOTE | 2022-04-10 06:38 | ED ---
Fall HPI - General Chief Complaint: Fall Stated Complaint: Fall, Head Pain Time Seen by Provider: 04/10/22 06:01 Source: patient, EMS, RN notes reviewed Mode of arrival: EMS Limitations: altered mental status - History of Present Illness Initial Comments: This a 67-year-old female presents emergency Department from [facility] for evaluation of a fall. Patient reportedly had a fall she states she does remember the fall there is no loss conscious. Patient states she did strike the right side of her head. She ate she tripped over her feet. Upon initial evaluation arrival she is found to have a fever, has no real complaints states that she's had mild cough otherwise minimal congestion. She has no complaints of abdominal pain no back pain no lower extremity injury. - Related Data Home Medications Medication Instructions Recorded Confirmed ALPRAZolam [Xanax] 0.25 mg PO Q8H PRN 11/06/20 06/29/21 Clopidogrel Bisulfate [Plavix] 75 mg PO DAILY 11/06/20 06/29/21 Donepezil HCl [Aricept] 10 mg PO HS 11/06/20 06/29/21 Ezetimibe [Zetia] 10 mg PO HS 11/06/20 06/29/21 Sertraline HCl [Zoloft] 100 mg PO DAILY 11/06/20 06/29/21 Topiramate [Topamax] 100 mg PO DAILY 11/06/20 06/29/21 traZODone HCL 100 mg PO HS 11/06/20 06/29/21 ALPRAZolam [Xanax] 0.25 mg PO BID@08,199906/29/21 06/29/21 Acetaminophen [Acetaminophen 8 650 mg PO Q6H PRN 06/29/21 06/29/21 Hour] Divalproex [Depakote] 250 mg PO TID 06/29/21 06/29/21 Health Shake 1 can PO BID-W/MEALS 06/29/21 06/29/21 Melatonin 5 mg PO HS@199906/29/21 06/29/21 Memantine [Namenda] 5 mg PO DAILY 06/29/21 06/29/21 Pantoprazole [Protonix] 40 mg PO HS@199906/29/21 06/29/21 Sertraline HCl [Zoloft] 50 mg PO DAILY 06/29/21 06/29/21 Previous Rx's Medication Instructions Recorded Cephalexin [Keflex] 500 mg PO BID #14 cap 04/10/22 Oseltamivir [Tamiflu] 75 mg PO Q12HR #10 cap 04/10/22 Allergies Allergy/AdvReac Type Severity Reaction Status Date / Time No Known Allergies Allergy Verified 04/10/22 06:05 Review of Systems ROS Statement: Those systems with pertinent positive or pertinent negative responses have been documented in the HPI. ROS Other: All systems not noted in ROS Statement are negative. Past Medical History Past Medical History: CVA/TIA, GERD/Reflux, Hyperlipidemia, Liver Disease Additional Past Medical History / Comment(s): brain aneurysm; TIA; Hepatitis C; Dementia; Psychosis History of Any Multi-Drug Resistant Organisms: None Reported Past Surgical History: Back Surgery, Orthopedic Surgery Additional Past Surgical History / Comment(s): shunt placement, neck surgery, right knee Past Psychological History: No Psychological Hx Reported Smoking Status: Current every day smoker Past Alcohol Use History: Occasional Past Drug Use History: None Reported General Exam Limitations: altered mental status, physical limitation General appearance: alert, in no apparent distress Head exam: Present: atraumatic, normocephalic, normal inspection Eye exam: Present: normal appearance, PERRL, EOMI. Absent: scleral icterus, conjunctival injection, periorbital swelling ENT exam: Present: normal exam, mucous membranes moist Neck exam: Present: normal inspection. Absent: tenderness, meningismus, full ROM, lymphadenopathy Respiratory exam: Present: normal lung sounds bilaterally. Absent: respiratory distress, wheezes, rales, rhonchi, stridor Cardiovascular Exam: Present: regular rate, normal rhythm, normal heart sounds. Absent: systolic murmur, diastolic murmur, rubs, gallop, clicks GI/Abdominal exam: Present: soft, normal bowel sounds. Absent: distended, tenderness, guarding, rebound, rigid Neurological exam: Present: alert, CN II-XII intact. Absent: oriented X3 Skin exam: Present: warm, dry, intact, normal color. Absent: rash Course Vital Signs 04/10/22 04/10/22 05:58 08:26 Temperature 101.9 F H 99.5 F Pulse Rate 79 77 Respiratory 16 15 Rate Blood Pressure 122/101 116/60 O2 Sat by Pulse 93 L 93 L Oximetry Medical Decision Making - Medical Decision Making Was pt. sent in by a medical professional or institution? @ -retirement Did you speak to anyone other than the patient for history? @ -EMS provided prehospital care, history given patient's history of dementia Did you review nursing and triage notes? @ -Agreed and reviewed Were old charts reviewed? @ -Reviewed retirement records including prior labs medications history Differential Diagnosis? @ -Closed head injury, and cranial hemorrhage, cervical fracture, fever, influenza, COVID-19, UTI this is not meant to be all-inclusive EKG interpreted by me (3pts min.)? @ -See above X-rays interpreted by me (1pt min.)? @ -Chest x-ray shows no acute process as interpreted by me CT interpreted by me (1pt min.)? @ -CT her brain and C-spine interpreted by me no acute process noted no intracranial hemorrhage, no skull fracture, no cervical fracture U/S interpreted by me (1pt. min.)? @ -None What testing was considered but not performed? (CT, X-rays, U/S, labs)? Why? @ none What meds were considered but not given? Why? @ -no Did you discuss the management of the patient with other professionals? @ -no Did you reconcile home meds? @ -no Was smoking cessation discussed for >3mins.? @ -no Was critical care preformed (if so, how long)? @ -no Were there social determinants of health that impacted care today? How? (Homelessness, low income, unemployed, alcoholism, drug addiction, transportation, low edu. Level, literacy, decrease access to med. care, senior care, r ehab)? @ -no Was there de-escalation of care discussed even if they declined? (Discuss DNR or withdrawal of care, Hospice)? @ -no What co-morbidities impacted this encounter? (DM, HTN, Smoking, COPD, CAD, Cancer, CVA, Hep., AIDS, mental health diagnosis, sleep apnea, morbid obesity)? @ -no Was patient admitted / discharged? @ -Discharged Undiagnosed new problem with uncertain prognosis? @ -none Drug Therapy requiring intensive monitoring for toxicity (Heparin, Nitro, Insulin, Cardizem)? @ -no Were any procedures done? @ -no Diagnosis/symptom? @ -Influenza A Acute, or Chronic, or Acute on Chronic? @ -Acute Uncomplicated (without systemic symptoms) or Complicated (systemic symptoms)? @ -Uncomplicated Side effects of treatment? @ -None Exacerbation, Progression, or Severe Exacerbation] @ -no Poses a threat to life or bodily function? @ -no Diagnosis/symptom? @ -UTI Acute, or Chronic, or Acute on Chronic? @ -acute Uncomplicated (without systemic symptoms) or Complicated (systemic symptoms)? @ -Uncomplicated Side effects of treatment? @ -no Exacerbation, Progression, or Severe Exacerbation] @ -no Poses a threat to life or bodily function? @ -no Diagnosis/symptom? @ -Closed head injury Acute, or Chronic, or Acute on Chronic? @ -Acute Uncomplicated (without systemic symptoms) or Complicated (systemic symptoms)? @ -Uncomplicated Side effects of treatment? @ -None Exacerbation, Progression, or Severe Exacerbation] @ -no Poses a threat to life or bodily function? @ -no - Lab Data Result diagrams: 04/10/22 06:46 04/10/22 06:46 Lab Results 04/10/22 04/10/22 04/10/22 Range/Units 06:46 06:46 06:46 WBC 8.4 (3.8-10.6) k/uL RBC 3.80 (3.80-5.40) m/uL Hgb 12.5 (11.4-16.0) gm/dL Hct 37.4 (34.0-46.0) % MCV 98.5 (80.0-100.0) fL MCH 33.0 (25.0-35.0) pg MCHC 33.5 (31.0-37.0) g/dL RDW 13.3 (11.5-15.5) % Plt Count 139 L (150-450) k/uL MPV 9.9 Neutrophils % 88 % Lymphocytes % 4 % Monocytes % 4 % Eosinophils % 3 % Basophils % 0 % Neutrophils # 7.4 (1.3-7.7) k/uL Lymphocytes # 0.4 L (1.0-4.8) k/uL Monocytes # 0.4 (0-1.0) k/uL Eosinophils # 0.2 (0-0.7) k/uL Basophils # 0.0 (0-0.2) k/uL Sodium 143 (137-145) mmol/L Potassium 3.7 (3.5-5.1) mmol/L Chloride 112 H (98-107) mmol/L Carbon Dioxide 23 (22-30) mmol/L Anion Gap 8 mmol/L BUN 16 (7-17) mg/dL Creatinine 0.87 (0.52-1.04) mg/dL Est GFR (CKD-EPI)AfAm 79 (>60 ml/min/1.73 sqM) Est GFR (CKD-EPI)NonAf 69 (>60 ml/min/1.73 sqM) Glucose 108 H (74-99) mg/dL Plasma Lactic Acid Rad 1.0 (0.7-2.0) mmol/L Calcium 8.6 (8.4-10.2) mg/dL Total Bilirubin 0.4 (0.2-1.3) mg/dL AST 20 (14-36) U/L ALT 15 (4-34) U/L Alkaline Phosphatase 70 (38-126) U/L Total Protein 7.0 (6.3-8.2) g/dL Albumin 4.0 (3.5-5.0) g/dL Urine Color Urine Appearance (Clear) Urine pH (5.0-8.0) Ur Specific [place] (1.001-1.035) Urine Protein (Negative) Urine Glucose (UA) (Negative) Urine Ketones (Negative) Urine Blood (Negative) Urine Nitrite (Negative) Urine Bilirubin (Negative) Urine Urobilinogen (<2.0) mg/dL Ur Leukocyte Esterase (Negative) Urine RBC (0-5) /hpf Urine WBC (0-5) /hpf Ur Squamous Epith Cells (0-4) /hpf Urine Bacteria (None) /hpf Urine Mucus (None) /hpf Influenza Type A (PCR) (Not Detectd) Influenza Type B (PCR) (Not Detectd) RSV (PCR) (Not Detectd) SARS-CoV-2 (PCR) (Not Detectd) 04/10/22 04/10/22 Range/Units 08:16 08:45 WBC (3.8-10.6) k/uL RBC (3.80-5.40) m/uL Hgb (11.4-16.0) gm/dL Hct (34.0-46.0) % MCV (80.0-100.0) fL MCH (25.0-35.0) pg MCHC (31.0-37.0) g/dL RDW (11.5-15.5) % Plt Count (150-450) k/uL MPV Neutrophils % % Lymphocytes % % Monocytes % % Eosinophils % % Basophils % % Neutrophils # (1.3-7.7) k/uL Lymphocytes # (1.0-4.8) k/uL Monocytes # (0-1.0) k/uL Eosinophils # (0-0.7) k/uL Basophils # (0-0.2) k/uL Sodium (137-145) mmol/L Potassium (3.5-5.1) mmol/L Chloride (98-107) mmol/L Carbon Dioxide (22-30) mmol/L Anion Gap mmol/L BUN (7-17) mg/dL Creatinine (0.52-1.04) mg/dL Est GFR (CKD-EPI)AfAm (>60 ml/min/1.73 sqM) Est GFR (CKD-EPI)NonAf (>60 ml/min/1.73 sqM) Glucose (74-99) mg/dL Plasma Lactic Acid Rad (0.7-2.0) mmol/L Calcium (8.4-10.2) mg/dL Total Bilirubin (0.2-1.3) mg/dL AST (14-36) U/L ALT (4-34) U/L Alkaline Phosphatase (38-126) U/L Total Protein (6.3-8.2) g/dL Albumin (3.5-5.0) g/dL Urine Color Yellow Urine Appearance Cloudy H (Clear) Urine pH 7.5 (5.0-8.0) Ur Specific [place] 1.020 (1.001-1.035) Urine Protein Negative (Negative) Urine Glucose (UA) Negative (Negative) Urine Ketones Negative (Negative) Urine Blood Negative (Negative) Urine Nitrite Positive H (Negative) Urine Bilirubin Negative (Negative) Urine Urobilinogen <2.0 (<2.0) mg/dL Ur Leukocyte Esterase Negative (Negative) Urine RBC 3 (0-5) /hpf Urine WBC 1 (0-5) /hpf Ur Squamous Epith Cells <1 (0-4) /hpf Urine Bacteria Rare H (None) /hpf Urine Mucus Rare H (None) /hpf Influenza Type A (PCR) Detected A (Not Detectd) Influenza Type B (PCR) Not Detected (Not Detectd) RSV (PCR) Not Detected (Not Detectd) SARS-CoV-2 (PCR) Not Detected (Not Detectd) - EKG Data -: EKG Interpreted by Me EKG Comments: EKG performed at 6:51 seconds from primary 77 DE 164 QRS 82 QT/QTC 378/427 Disposition Clinical Impression: Fall, Closed head injury, UTI (urinary tract infection), Influenza A Disposition: HOME SELF-CARE Condition: Stable Instructions (If sedation given, give patient instructions): Fall Prevention (ED) Additional Instructions: Please return to the Emergency Department if symptoms worsen or any other concerns. Prescriptions: Cephalexin [Keflex] 500 mg PO BID #14 cap Oseltamivir [Tamiflu] 75 mg PO Q12HR #10 cap Is patient prescribed a controlled substance at d/c from ED?: No Referrals: Daxa Richardson DO [Primary Care Provider] - 1-2 days Time of Disposition: 09:32
[2022-04-10 06:57] LABS: Basophils % (A) 0 %; Eosinophils # (A) 0.2 k/uL (0-0.7); Eosinophils % (A) 3 %; HCT 37.4 % (34.0-46.0); HGB 12.5 gm/dL (11.4-16.0); Lymphocytes # (A) 0.4 k/uL (1.0-4.8); Lymphocytes % (A) 4 %; MCHC 33.5 g/dL (31.0-37.0); MCV 98.5 fL (80.0-100.0); Mean Platelet Volume 9.9; Monocytes # (A) 0.4 k/uL (0-1.0); Monocytes % (A) 4 %; Neutrophils # (A) 7.4 k/uL (1.3-7.7); Neutrophils % (A) 88 %; Platelet Count 139 k/uL (150-450); RDW 13.3 % (11.5-15.5); WBC 8.4 k/uL (3.8-10.6)
--- NOTE | 2022-04-10 07:09 | CT ---
EXAMINATION TYPE: CT brain mary beth nguyen con DATE OF EXAM: 04/10/2022 COMPARISON: Prior, CT 2 days ago. HISTORY: Falling injury with headache and neck pain CT DLP: 307.4 mGycm. Automated Exposure Control for Dose Reduction was Utilized. TECHNIQUE: CT scan of the head and cervical spine are performed without contrast. FINDINGS: Bilateral craniotomy changes with additional right-sided craniectomy changes redemonstrated . No acute intracranial hemorrhage or midline shift. There is stable right-sided DRYERMAN/WOMAN shunt catheter wi th focal encephalomalacia involving the right frontal lobe. Ventricular size is stable. Mild to moder ate ventricular and sulcal prominence is redemonstrated. Additional areas of low-attenuation througho ut the deep and periventricular white matter are again seen. Moderate coastal thickening involving et hmoid sinuses bilaterally is redemonstrated. Globes are intact bilaterally. Cervical spine is visualized in its entirety from C1 through upper thoracic levels and redemonstrates anterior fusion plate C5-C7 level with some ossific fusion. Mild disc space narrowing with moderate spurring at C4-C5 level is redemonstrated. No acute displaced fracture is seen. Spinal canal is prese rved. Prevertebral soft tissue remains within normal limits. The C1-C2 articulation is within calin l limits on the coronal images. Review of axial images redemonstrates multilevel uncovertebral facet degenerative changes. Lung apices show no pneumothorax. Thyroid gland appears within normal limits. There is portion of right sided DRYERMAN/WOMAN shunt catheter redemonstrated IMPRESSION: 1. There is no acute fracture or dislocation evident in the cervical spine. 2. No acute intracranial hemorrhage or midline shift is seen. No significant change from recent CT 2 days earlier.
[2022-04-10 07:11] LABS: Calcium 8.6 mg/dL (8.4-10.2); Potassium 3.7 mmol/L (3.5-5.1); Total Bilirubin 0.4 mg/dL (0.2-1.3)
[2022-04-10 08:29] VITALS: TEMP 99.5
[2022-04-10 09:03] LABS: Appearance,Urine Cloudy (Clear); Bacteria,Urine Rare /hpf; Bilirubin,Urine Negative (Negative); Blood,Urine Negative (Negative); Color,Urine Yellow; Glucose,Urine (UA) Negative (Negative); Ketones,Urine Negative (Negative); Leukocyte Esterase,Urine Negative (Negative); Mucus,Urine Rare /hpf; Nitrite,Urine Positive (Negative); PH, Urine 7.5 (5.0-8.0); Protein,Urine Negative (Negative); RBC,Urine 3 /hpf (0-5); Squamous Epithelial Cell,Urine <1 /hpf (0-4); Urobilinogen,Urine <2.0 mg/dL (<2.0); WBC,Urine 1 /hpf (0-5)
[2022-04-10 10:09] VITALS: BP 101/65; PULSE 78; RESP 18
== END 2022-04-10 10:20 | disposition home or self-care (01) ==
LOC: EC 05:57
DX: S09.90XA Unspecified injury of head, initial encounter (principal); N39.0 Urinary tract infection, site not specified; J10.1 Influenza due to other identified influenza virus with other respiratory manifestations; K21.9 Gastro-esophageal reflux disease without esophagitis; E78.5 Hyperlipidemia, unspecified; F17.200 Nicotine dependence, unspecified, uncomplicated; Z20.822 Contact with and (suspected) exposure to COVID-19; Z79.899 Other long term (current) drug therapy; W01.198A Fall on same level from slipping, tripping and stumbling with subsequent striking against other object, initial encounter
CPT/HCPCS: 36415; 70450; 71045; 72125; 80053; 81001; 83605; 85025; 87636; 93005; 99285

== ENCOUNTER → 2022-11-15 | Outpatient (CLI) | payer MEDICARE ==
[2022-11-15 15:57] LABS: African American GFR (CKD) 62 (>60 ml/min/1.73 sqM); Blood Urea Nitrogen 25 mg/dL (7-17); Non-African American GFR(CKD) 54 (>60 ml/min/1.73 sqM)
--- NOTE | 2022-11-16 08:33 | CT ---
EXAMINATION TYPE: CT cervical spine wo con DATE OF EXAM: 11/15/2022 COMPARISON: 04/10/2022 HISTORY: hx of brain aneurysm and cervical spine degeneration CT DLP: 453.0 mGycm CONTRAST: None CT of the cervical spine is performed in the axial plane at 2 mm thick sections. Reconstructed image s in the coronal, and sagittal plane are reviewed on the computer. No acute fractures are evident. Vertebral body alignment is normal. Anterior cervical fusion is present C5-C7. Posterior spinal lamel lar line is intact. There is loss of disc height through the cervical fusion. Some posterior disc space narrowing is pres ent C4-5 and C7-T1. Vertebral body heights are preserved. No spinal canal stenosis is evident Uncovertebral joint hypertrophy has mild foraminal narrowing C3-4 on the left. Severe right foraminal stenosis is at C4-5. Lung apices within the field of view are clear. IMPRESSIONS: 1. Postsurgical anterior cervical fusion changes. 2. Foraminal narrowing mild left C3-4, and severe right C4-5.
--- NOTE | 2022-11-16 08:47 | CT ---
EXAMINATION TYPE: CT angio head DATE OF EXAM: 11/15/2022 HISTORY: hx of brain aneurysm and cervical spine degeneration COMPARISON: 04/10/2022 CT DLP: 1087.10 mGycm. Automated Exposure Control for Dose Reduction was Utilized. TECHNIQUE: CTA scan of the brain is performed without and with IV Contrast, patient injected with 80 ml mL of Isovue 370, axial images are obtained, coronal and sagittal reformatted images are reviewed. Three-D reconstructed images are created on an independent workstation and reviewed. Source images are reviewed. FINDINGS: Cervical of [place]: Vertebral basilar system appears normal. Posterior cerebral vasculature is unrema rkable. Internal carotid arteries bifurcate normally into A1 and M1 segments. A2 segments are normal. The rig ht distal internal carotid artery caliber has subtle prominence. The cervantes are somewhat dense compare d to the left, underlying stent may be present. No focal aneurysm is identified. Postsurgical aneurys m clip is evident on the right. The anterior communicating artery is not identified. The right posterior communicating artery is identified. The left posterior communicating artery is identified. Other: There is a right lateral ventricle shunt present. White matter changes are within the perivent ricular white matter. There may be prior small infarcts in the right posterior parietal lobe and righ t frontal region. IMPRESSION: 1. Postsurgical aneurysm clip changes evident. 2. Shunt catheter without evidence of hydrocephalus. 3. White matter changes and suggestion of prior infarct or encephalomalacia right frontal and posteri or parietal lobes
== END | disposition home or self-care (01) ==
LOC: RADCTMAIN 15:06
PROVIDERS: ATTEND Psychiatry & Neurology Neurology
DX: M99.71 Connective tissue and disc stenosis of intervertebral foramina of cervical region (principal); M50.321 Other cervical disc degeneration at C4-C5 level; I72.9 Aneurysm of unspecified site; R90.82 White matter disease, unspecified; Z98.1 Arthrodesis status; Z86.79 Personal history of other diseases of the circulatory system
CPT/HCPCS: 82565; 84520; 72125; 70496; 36415; Q9967

== ENCOUNTER 2023-02-09 01:33 | Emergency (ER) | payer MEDICARE ==
[2023-02-09 01:47] VITALS: RESP 18
--- NOTE | 2023-02-09 03:23 | CT ---
EXAM: CT Head Without Intravenous Contrast CLINICAL HISTORY: ITS.REASON CT Reason: fall hematoma to scalp TECHNIQUE: Axial computed tomography images of the head/brain without intravenous contrast. CTDI is 58 mGy and DLP is 1963 mGy-cm. This CT exam was performed using one or more of the following dose reduction techniques: automated exposure control, adjustment of the mA and/or kV according to patient size, and/or use of iterative reconstruction technique. COMPARISON: 02/06/23 IMPRESSION: No acute hemorrhage, hydrocephalus, or mass effect. Shunt catheter in place. Chronic changes are again seen. EXAM: CT Cervical Spine Without Intravenous Contrast CLINICAL HISTORY: ITS.REASON CT Reason: fall hematoma to scalp TECHNIQUE: Axial computed tomography images of the cervical spine without intravenous contrast. CTDI is 58 mGy and DLP is 1963 mGy-cm. This CT exam was performed using one or more of the following dose reduction techniques: automated exposure control, adjustment of the mA and/or kV according to patient size, and/or use of iterative reconstruction technique. COMPARISON: No relevant prior studies available. FINDINGS: Vertebrae: No acute fracture. ACDF. Discs/spinal canal/neural foramina: degenerative changes. Soft tissues: No prevertebral swelling. IMPRESSION: No acute fracture or subluxation.
--- NOTE | 2023-02-09 04:05 | ED ---
General Adult HPI - General Chief complaint: Fall Stated complaint: Fall Time Seen by Provider: 02/09/23 01:41 Source: EMS Mode of arrival: EMS - History of Present Illness Initial comments: Dictation was produced using [employer] dictation software. please excuse any grammatical, word or spelling errors. Chief Complaint: 67-year-old female presents to the emergency department after fall History of Present Illness: Patient is a 59-year-old female she has multiple comorbidities. She is a patient admitted at a correction. She had an unwitnessed fall. Patient states she tripped and rolled feet and fell forward from a standing position. Patient takes anti-platelet medications. Patient denies any neck pain. The ROS documented in this emergency department record has been reviewed and confirmed by me. Those systems with pertinent positive or negative responses have been documented in the HPI. All other systems are other negative and/or noncontributory. - Related Data Home Medications Medication Instructions Recorded Confirmed ALPRAZolam [Xanax] 0.25 mg PO Q8H PRN 11/06/20 06/29/21 Clopidogrel Bisulfate [Plavix] 75 mg PO DAILY 11/06/20 06/29/21 Donepezil HCl [Aricept] 10 mg PO HS 11/06/20 06/29/21 Ezetimibe [Zetia] 10 mg PO HS 11/06/20 06/29/21 Sertraline HCl [Zoloft] 100 mg PO DAILY 11/06/20 06/29/21 Topiramate [Topamax] 100 mg PO DAILY 11/06/20 06/29/21 traZODone HCL 100 mg PO HS 11/06/20 06/29/21 ALPRAZolam [Xanax] 0.25 mg PO BID@799,199906/29/21 06/29/21 Acetaminophen [Acetaminophen 8 650 mg PO Q6H PRN 06/29/21 06/29/21 Hour] Divalproex [Depakote] 250 mg PO TID 06/29/21 06/29/21 Health Shake 1 can PO BID-W/MEALS 06/29/21 06/29/21 Melatonin 5 mg PO HS@199906/29/21 06/29/21 Memantine [Namenda] 5 mg PO DAILY 06/29/21 06/29/21 Pantoprazole [Protonix] 40 mg PO HS@199906/29/21 06/29/21 Sertraline HCl [Zoloft] 50 mg PO DAILY 06/29/21 06/29/21 Previous Rx's Medication Instructions Recorded Cephalexin [Keflex] 500 mg PO BID #14 cap 04/10/22 Oseltamivir [Tamiflu] 75 mg PO Q12HR #10 cap 04/10/22 Allergies Allergy/AdvReac Type Severity Reaction Status Date / Time No Known Allergies Allergy Verified 02/09/23 01:45 Review of Systems ROS Statement: Those systems with pertinent positive or pertinent negative responses have been documented in the HPI. ROS Other: All systems not noted in ROS Statement are negative. Past Medical History Past Medical History: CVA/TIA, GERD/Reflux, Hyperlipidemia, Liver Disease Additional Past Medical History / Comment(s): brain aneurysm; TIA; Hepatitis C; Dementia; Psychosis History of Any Multi-Drug Resistant Organisms: None Reported Past Surgical History: Back Surgery, Orthopedic Surgery Additional Past Surgical History / Comment(s): shunt placement, neck surgery, right knee Past Psychological History: No Psychological Hx Reported Smoking Status: Current every day smoker Past Alcohol Use History: Occasional Past Drug Use History: None Reported General Exam - General Exam Comments Initial Comments: PHYSICAL EXAM: General Impression: Alert and oriented x3, not in acute distress HEENT: Normocephalic atraumatic, extra-ocular movements intact, pupils equal and reactive to light bilaterally, mucous membranes moist. Cardiovascular: Heart regular rate and rhythm Chest: Able to complete full sentences, no retractions, no tachypnea Abdomen: abdomen soft, non-tender, non-distended, no organomegaly Musculoskeletal: Pulses present and equal in all extremities, no peripheral edema Motor: no focal deficits noted Neurological: CN II-XII grossly intact, no focal motor or sensory deficits noted Skin: Intact with no visualized rashes Psych: Normal affect and mood Course Vital Signs 02/09/23 01:36 Temperature 98.2 F Pulse Rate 62 Respiratory 18 Rate Blood Pressure 109/69 O2 Sat by Pulse 98 Oximetry EKG Findings - EKG Comments: EKG Findings:: My EKG interpretation: Ventricular rate sinus rhythm, ventricular rate 66,. 192, QRS 87, QTC 425. No [place] prolongation, no QTC prolongation, no ST or T-wave changes noted. EKG interpretation limited by artifact from tremors. Overall, this EKG is nonspecific Medical Decision Making - Medical Decision Making Was pt. sent in by a medical professional or institution (KYRA Moreno, MGMT CONSULTANT, urgent care, hospital, or correction...) When possible be specific @ -No Did you speak to anyone other than the patient for history (EMS, parent, family, police, friend...)? What history was obtained from this source @ -No Did you review nursing and triage notes (agree or disagree)? Why? @ -I reviewed and agree with nursing and triage notes Were old charts reviewed (outside hosp., previous admission, EMS record, old EKG, old radiological studies, urgent care reports/EKG's, correction records)? Report findings @ -No old charts were reviewed Differential Diagnosis (chest pain, altered mental status, abdominal pain women, abdominal pain men, vaginal bleeding, musculoskeletal, weakness, fever, dyspnea, syncope, headache, dizziness, GI bleed, back pain, seizure, CVA, palpatations, mental health)? @ -not applicable EKG interpreted by me (3pts min.). @ -See above X-rays interpreted by me (1pt min.). @ -None done CT interpreted by me (1pt min.). @ -CT scan of the brain and C-spine shows no acute processes U/S interpreted by me (1pt. min.). @ -None done What testing was considered but not performed or refused? (CT, X-rays, U/S, labs)? Why? @ -None What meds were considered but not given or refused? Why? @ -None Did you discuss the management of the patient with other professionals (professionals i.e. KYRA Moreno, MGMT CONSULTANT, lab, RT, psych nurse, manager social responsibility, animal bounty hunter, teacher, seal delivery vehicle officer, supportive employment case manager)? Give summary @ -No Was smoking cessation discussed for >3mins.? @ -No Was critical care preformed (if so, how long)? @ -No Were there social determinants of health that impacted care today? How? (Homelessness, low income, unemployed, alcoholism, drug addiction, transportation, low edu. Level, literacy, decrease access to med. care, correction, rehab)? @ -No Was there de-escalation of care discussed even if they declined (Discuss DNR or withdrawal of care, Hospice)? DNR status @ -No What co-morbidities impacted this encounter? (DM, HTN, Smoking, COPD, CAD, Cancer, CVA, ARF, Chemo, Hep., AIDS, mental health diagnosis, sleep apnea, morbid obesity)? @ -None Was patient admitted / discharged? Hospital course, mention meds given and route, prescriptions, significant lab abnormalities, going to OR and other pertinent info. @ -67-year-old female past medical history of dementia presents to the emergency department after described mechanical fall. Vital signs upon arrival are within acceptable limits. Patient states she tripped over her own feet. Undiagnosed new problem with uncertain prognosis? @ -No Drug Therapy requiring intensive monitoring for toxicity (Heparin, Nitro, Insulin, Cardizem)? @ -No Were any procedures done? @ -No Diagnosis/symptom? Acute, or Chronic, or Acute on Chronic? Uncomplicated (without systemic symptoms) or Complicated (systemic symptoms)? @ -Fall Side effects of treatment? @ -No Exacerbation, Progression, or Severe Exacerbation? @ -No Poses a threat to life or bodily function? How? (Chest pain, USA, AL, pneumonia, PE, COPD, DKA, ARF, appy, cholecystitis, CVA, Diverticulitis, Homicidal, Suicidal, threat to staff... and all critical care pts) @ -yes Disposition Clinical Impression: Fall Disposition: HOME SELF-CARE Condition: Good Instructions (If sedation given, give patient instructions): Fall Prevention for Older Adults (ED) Is patient prescribed a controlled substance at d/c from ED?: No Referrals: Kari Meadows DO [Primary Care Provider] - 1-2 days Time of Disposition: 04:05
[2023-02-09 04:50] VITALS: BP 120/70; PULSE 72; TEMP 98.1
== END 2023-02-09 06:45 | disposition home or self-care (01) ==
LOC: EC 01:33
DX: S99.929A Unspecified injury of unspecified foot, initial encounter (principal); K21.9 Gastro-esophageal reflux disease without esophagitis; F17.200 Nicotine dependence, unspecified, uncomplicated; Z86.73 Personal history of transient ischemic attack (TIA), and cerebral infarction without residual deficits; Z79.02 Long term (current) use of antithrombotics/antiplatelets; W01.0XXA Fall on same level from slipping, tripping and stumbling without subsequent striking against object, initial encounter
CPT/HCPCS: 70450; 72125; 93005; 99285

== ENCOUNTER 2023-10-01 10:39 | Inpatient (IN) | payer MEDICARE ==
--- NOTE | 2023-10-01 11:38 | ED ---
General Adult HPI - General Chief complaint: Weakness Stated complaint: Weakness Time Seen by Provider: 10/01/23 10:43 Source: EMS Mode of arrival: EMS Limitations: no limitations - History of Present Illness Initial comments: Dictation was produced using [employer] dictation software. please excuse any grammatical, word or spelling errors. Chief Complaint: 68-year-old female presents to the emergency department for concerns of weakness and possible CVA History of Present Illness: Patient 68-year-old female she currently resides at a dementia facility. According to report from EMS who received report from dementia facility staff patient has seemed to be much more weak than usual. She not get out of bed and they are concerned about stroke. They did not mention what her focal neurologic deficit is. Patient apparently has a history of TIA. Patient denies any complaints at the bedside however given history of dementia she is not a reliable historian. Unable to obtain ROS secondary to patient's mental status - Related Data Home Medications Medication Instructions Recorded Confirmed Clopidogrel Bisulfate [Plavix] 75 mg PO HS@199911/06/20 10/01/23 Ezetimibe [Zetia] 10 mg PO DAILY 11/06/20 10/01/23 Sertraline HCl [Zoloft] 100 mg PO DAILY 11/06/20 10/01/23 Topiramate [Topamax] 100 mg PO DAILY 11/06/20 10/01/23 traZODone HCL 100 mg PO HS@199911/06/20 10/01/23 ALPRAZolam [Xanax] 0.25 mg PO TID@0700,1300,1900 06/29/21 10/01/23 Acetaminophen [Acetaminophen 8 650 mg PO QID@07,13,19,23 06/29/21 10/01/23 Hour] ARIPiprazole [Abilify] 15 mg PO DAILY@0700 10/01/23 10/01/23 Butalb/Acetaminophen/Caffeine 1 cap PO DAILY 10/01/23 10/01/23 [Fioricet 50-300-40 mg Capsule] Butalb/Acetaminophen/Caffeine 1 cap PO Q12H PRN 10/01/23 10/01/23 [Fioricet 50-300-40 mg Capsule] Carbidopa-Levodopa 25-100 mg 1 tab PO TID@0700,1300,1900 10/01/23 10/01/23 [Sinemet 25-100] Divalproex [Depakote] 500 mg PO BID@0700,1600 10/01/23 10/01/23 Esomeprazole Magnesium 20 mg PO HS@199910/01/23 10/01/23 Melatonin 6 mg PO HS 10/01/23 10/01/23 Meloxicam [Mobic] 15 mg PO DAILY 10/01/23 10/01/23 Memantine [Namenda] 10 mg PO DAILY 10/01/23 10/01/23 Naloxone HCl 4 mg NASAL ONCE PRN 10/01/23 10/01/23 Naloxone Hcl Injection Solution 0.4 mg SQ ONCE PRN 10/01/23 10/01/23 0.4mg/Ml Allergies Allergy/AdvReac Type Severity Reaction Status Date / Time No Known Allergies Allergy Verified 02/09/23 01:45 Review of Systems ROS Statement: Those systems with pertinent positive or pertinent negative responses have been documented in the HPI. ROS Other: All systems not noted in ROS Statement are negative. Past Medical History Past Medical History: CVA/TIA, GERD/Reflux, Hyperlipidemia, Liver Disease Additional Past Medical History / Comment(s): brain aneurysm; TIA; Hepatitis C; Dementia; Psychosis History of Any Multi-Drug Resistant Organisms: None Reported Past Surgical History: Back Surgery, Orthopedic Surgery Additional Past Surgical History / Comment(s): shunt placement, neck surgery, right knee Past Psychological History: No Psychological Hx Reported Smoking Status: Current every day smoker Past Alcohol Use History: Occasional Past Drug Use History: None Reported General Exam - General Exam Comments Initial Comments: PHYSICAL EXAM: General Impression: Alert and oriented x1/4, not in acute distress HEENT: Normocephalic atraumatic, extra-ocular movements intact, pupils equal and reactive to light bilaterally, mucous membranes moist. Cardiovascular: Heart regular rate and rhythm Chest: Able to complete full sentences, no retractions, no tachypnea Abdomen: abdomen soft, non-tender, non-distended, no organomegaly Musculoskeletal: Pulses present and equal in all extremities, no peripheral edema Motor: no focal deficits noted Neurological: CN II-XII grossly intact, no focal motor or sensory deficits noted Skin: Intact with no visualized rashes Psych: Normal affect and mood Limitations: no limitations Course Vital Signs 06/25/24 06/25/24 10:46 14:03 Temperature 97.2 F L Pulse Rate 76 76 Respiratory 18 17 Rate Blood Pressure 104/74 124/68 O2 Sat by Pulse 95 96 Oximetry EKG Findings - EKG Comments: EKG Findings:: My EKG interpretation: Ventricular rate 78, sinus rhythm,. 165, cures 90, QTc 436. No MA prolongation, no QTC prolongation, no ST or T-wave changes noted. There does appear to be artifacts from patient's musculoskeletal tremor. overall, this EKG is unremarkable Medical Decision Making - Medical Decision Making Was pt. sent in by a medical professional or institution (, PA, STRUCTURAL ANALYST, urgent care, hospital, or fci...) When possible be specific @ -Sent in from fci Did you speak to anyone other than the patient for history (EMS, parent, family, police, friend...)? What history was obtained from this source @ -EMS as described above Did you review nursing and triage notes (agree or disagree)? Why? @ -I reviewed and agree with nursing and triage notes Were old charts reviewed (outside hosp., previous admission, EMS record, old EKG, old radiological studies, urgent care reports/EKG's, [facility]ci records)? Report findings @ -No old charts were reviewed Differential Diagnosis (chest pain, altered mental status, abdominal pain women, abdominal pain men, vaginal bleeding, musculoskeletal, weakness, fever, dyspnea, syncope, headache, dizziness, GI bleed, back pain, seizure, CVA, palpatations, mental health)? @ -Differential Altered Mental Status: Hypoglycemia, DKA, hypercapnia, ETOH, overdose, CO poisoning, trauma, myxedema coma, HTN encephalopathy, infection, encephalitis, psychosis, intercranial hemorrhage, hepatic encephalopathy, meningitis, CVA, this is not meant to be an all-inclusive list EKG interpreted by me (3pts min.). @ -See above X-rays interpreted by me (1pt min.). @ -Chest x-ray is nonacute CT interpreted by me (1pt min.). @ -CT brain and CT angiography shows no acute processes. U/S interpreted by me (1pt. min.). @ -None done What testing was considered but not performed or refused? (CT, X-rays, U/S, labs)? Why? @ -None What meds were considered but not given or refused? Why? @ -None Was smoking cessation discussed for >3mins.? @ -No Were there social determinants of health that impacted care today? How? (Homelessness, low income, unemployed, alcoholism, drug addiction, transportation, low edu. Level, literacy, decrease access to med. care, detention, rehab)? @ -No Was there de-escalation of care discussed even if they declined (Discuss DNR or withdrawal of care, Hospice)? DNR status @ -No What co-morbidities impacted this encounter? (DM, HTN, Smoking, COPD, CAD, Cancer, CVA, ARF, Chemo, Hep., AIDS, mental health diagnosis, sleep apnea, morbid obesity)? @ -Dementia Was patient admitted / discharged? Hospital course, mention meds given and route, prescriptions, significant lab abnormalities, going to OR and other pe rtinent info. @ -68-year-old female presents to the emergency department for episode of altered mental status. EMS states that staff at the [facility] was concerned of CVA. She has a history of TIA. Vital signs upon arrival are within acceptable limits. Patient pleasantly demented she is moving all extremities grossly. It is unclear what patient's baseline mentation is. Where history was obtained from family states that patient was slumped over in chair was concerning that she had passed out. Laboratory evaluation obtained. CBC, metabolic panel urinalysis is negative. Viral testing is negative. CT scan of the brain negative. CT angiography shows no other vascular abnormalities. Chest x-ray nonacute. Patient slightly agitated given 1 mg of IV Ativan. At this point it is unclear patient had a syncopal episode versus a brief episode of focal neurologic deficit. She will be admitted with consultation to neurology. Did you discuss the management of the patient with other professionals (professionals i.e. , PA, STRUCTURAL ANALYST, lab, RT, psych nurse, psychosocial rehabilitation counselor, cigar head stringer, teacher, information assurance officer, case managers)? Give summary @ -No Was critical care preformed (if so, how long)? @ -No Undiagnosed new problem with uncertain prognosis? @ -No Drug Therapy requiring intensive monitoring for toxicity (Heparin, Nitro, Insulin, Cardizem)? @ -No Were any procedures done? @ -No Diagnosis/symptom? Acute, or Chronic, or Acute on Chronic? Uncomplicated (without systemic symptoms) or Complicated (systemic symptoms)? @ - syncope versus TIA Side effects of treatment? @ -No Exacerbation, Progression, or Severe Exacerbation? @ -No Poses a threat to life or bodily function? How? (Chest pain, USA, AL, pneumonia, PE, COPD, DKA, ARF, appy, cholecystitis, CVA, Diverticulitis, Homicidal, Suicidal, threat to staff... and all critical care pts) @ -yes - Lab Data Result diagrams: 10/01/23 11:28 10/01/23 11: Lab Results 10/01/23 10/01/23 10/01/23 Range/Units 11:28 11: 11:28 WBC 9.9 (3.8-10.6) k/uL RBC 3.78 L (3.80-5.40) m/uL Hgb 12.5 (11.4-16.0) gm/dL Hct 39.7 (34.0-46.0) % MCV 105.0 H (80.0-100.0) fL MCH 33.0 (25.0-35.0) pg MCHC 31.4 (31.0-37.0) g/dL RDW 12.9 (11.5-15.5) % Plt Count 269 (150-450) k/uL MPV 9.1 Neutrophils % 74 % Lymphocytes % 12 % Monocytes % 6 % Eosinophils % 7 % Basophils % 1 % Neutrophils # 7.3 (1.3-7.7) k/uL Lymphocytes # 1.2 (1.0-4.8) k/uL Monocytes # 0.6 (0-1.0) k/uL Eosinophils # 0.7 (0-0.7) k/uL Basophils # 0.1 (0-0.2) k/uL Macrocytosis Slight Sodium 143 (137-145) mmol/L Potassium 3.9 (3.5-5.1) mmol/L Chloride 111 H (98-107) mmol/L Carbon Dioxide 23 (22-30) mmol/L Anion Gap 9 mmol/L BUN 16 (7-17) mg/dL Creatinine 0.70 (0.52-1.04) mg/dL Est GFR (CKD-EPI)AfAm >90 (>60 ml/min/1.73 sqM) Est GFR (CKD-EPI)NonAf 89 (>60 ml/min/1.73 sqM) Glucose 93 (74-99) mg/dL Calcium 9.1 (8.4-10.2) mg/dL Magnesium 2.0 (1.6-2.3) mg/dL Total Bilirubin 0.4 (0.2-1.3) mg/dL AST 20 (14-36) U/L ALT <6 (4-34) U/L Alkaline Phosphatase 100 (38-126) U/L Total Protein 7.1 (6.3-8.2) g/dL Albumin 4.0 (3.5-5.0) g/dL Urine Color Urine Appearance (Clear) Urine pH (5.0-8.0) Ur Specific [place] (1.001-1.035) Urine Protein (Negative) Urine Glucose (UA) (Negative) Urine Ketones (Negative) Urine Blood (Negative) Urine Nitrite (Negative) Urine Bilirubin (Negative) Urine Urobilinogen (<2.0) mg/dL Ur Leukocyte Esterase (Negative) Urine WBC (0-5) /hpf Ur Squamous Epith Cells (0-4) /hpf Urine Bacteria (None) /hpf Urine Mucus (None) /hpf Influenza Type A (PCR) Not Detected (Not Detectd) Influenza Type B (PCR) Not Detected (Not Detectd) RSV (PCR) Not Detected (Not Detectd) SARS-CoV-2 (PCR) Not Detected (Not Detectd) 10/01/23 Range/Units 12:21 WBC (3.8-10.6) k/uL RBC (3.80-5.40) m/uL Hgb (11.4-16.0) gm/dL Hct (34.0-46.0) % MCV (80.0-100.0) fL MCH (25.0-35.0) pg MCHC (31.0-37.0) g/dL RDW (11.5-15.5) % Plt Count (150-450) k/uL MPV Neutrophils % % Lymphocytes % % Monocytes % % Eosinophils % % Basophils % % Neutrophils # (1.3-7.7) k/uL Lymphocytes # (1.0-4.8) k/uL Monocytes # (0-1.0) k/uL Eosinophils # (0-0.7) k/uL Basophils # (0-0.2) k/uL Macrocytosis Sodium (137-145) mmol/L Potassium (3.5-5.1) mmol/L Chloride (98-107) mmol/L Carbon Dioxide (22-30) mmol/L Anion Gap mmol/L BUN (7-17) mg/dL Creatinine (0.52-1.04) mg/dL Est GFR (CKD-EPI)AfAm (>60 ml/min/1.73 sqM) Est GFR (CKD-EPI)NonAf (>60 ml/min/1.73 sqM) Glucose (74-99) mg/dL Calcium (8.4-10.2) mg/dL Magnesium (1.6-2.3) mg/dL Total Bilirubin (0.2-1.3) mg/dL AST (14-36) U/L ALT (4-34) U/L Alkaline Phosphatase (38-126) U/L Total Protein (6.3-8.2) g/dL Albumin (3.5-5.0) g/dL Urine Color Yellow Urine Appearance Cloudy H (Clear) Urine pH 7.0 (5.0-8.0) Ur Specific [place] 1.033 (1.001-1.035) Urine Protein Trace H (Negative) Urine Glucose (UA) Negative (Negative) Urine Ketones Trace H (Negative) Urine Blood Negative (Negative) Urine Nitrite Negative (Negative) Urine Bilirubin Negative (Negative) Urine Urobilinogen 4.0 (<2.0) mg/dL Ur Leukocyte Esterase Trace H (Negative) Urine WBC 2 (0-5) /hpf Ur Squamous Epith Cells 2 (0-4) /hpf Urine Bacteria Rare H (None) /hpf Urine Mucus Rare H (None) /hpf Influenza Type A (PCR) (Not Detectd) Influenza Type B (PCR) (Not Detectd) RSV (PCR) (Not Detectd) SARS-CoV-2 (PCR) (Not Detectd) Disposition Clinical Impression: Syncope Disposition: ADMITTED IP TO THIS HOSP Condition: Fair Referrals: Daxa Richardson DO [Primary Care Provider] - 1-2 days Decision Time: 15:12
[2023-10-01 11:53] LABS: Basophils # (A) 0.1 k/uL (0-0.2); Basophils % (A) 1 %; Eosinophils # (A) 0.7 k/uL (0-0.7); Eosinophils % (A) 7 %; HCT 39.7 % (34.0-46.0); HGB 12.5 gm/dL (11.4-16.0); Lymphocytes # (A) 1.2 k/uL (1.0-4.8); Lymphocytes % (A) 12 %; MCHC 31.4 g/dL (31.0-37.0); Macrocytosis Slight; Mean Platelet Volume 9.1; Monocytes # (A) 0.6 k/uL (0-1.0); Monocytes % (A) 6 %; Neutrophils # (A) 7.3 k/uL (1.3-7.7); Neutrophils % (A) 74 %; Platelet Count 269 k/uL (150-450); RBC 3.78 m/uL (3.80-5.40); RDW 12.9 % (11.5-15.5); WBC 9.9 k/uL (3.8-10.6)
[2023-10-01 12:04] LABS: ALT <6 U/L (4-34); AST 20 U/L (14-36); African American GFR (CKD) >90 (>60 ml/min/1.73 sqM); Alkaline Phosphatase 100 U/L (38-126); Anion Gap 9 mmol/L; Blood Urea Nitrogen 16 mg/dL (7-17); Calcium 9.1 mg/dL (8.4-10.2); Carbon Dioxide 23 mmol/L (22-30); Chloride 111 mmol/L (98-107); Glucose 93 mg/dL (74-99); Non-African American GFR(CKD) 89 (>60 ml/min/1.73 sqM); Potassium 3.9 mmol/L (3.5-5.1); Sodium 143 mmol/L (137-145); Total Bilirubin 0.4 mg/dL (0.2-1.3); Total Protein 7.1 g/dL (6.3-8.2)
--- NOTE | 2023-10-01 12:23 | XR ---
EXAMINATION TYPE: XR chest 1V portable DATE OF EXAM: 10/01/2023 Comparison: 04/10/2022 Clinical History: 68-year-old female confusion, weakness, ams Findings: Heart normal size. Aorta and pulmonary vasculature within normal limits. Strandy atelectasis left bas e. No consolidation or pleural effusion. 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 Clinically correlate. No consolidation or pleural effusion. ACDF hardware. Impression: Some strandy atelectasis at the left base. No definite acute process.
[2023-10-01 12:43] LABS: Appearance,Urine Cloudy (Clear); Bacteria,Urine Rare /hpf; Bilirubin,Urine Negative (Negative); Blood,Urine Negative (Negative); Color,Urine Yellow; Glucose,Urine (UA) Negative (Negative); Ketones,Urine Trace (Negative); Leukocyte Esterase,Urine Trace (Negative); Mucus,Urine Rare /hpf; Nitrite,Urine Negative (Negative); Protein,Urine Trace (Negative); Specific Gravity,Urine 1.033 (1.001-1.035); Squamous Epithelial Cell,Urine 2 /hpf (0-4); WBC,Urine 2 /hpf (0-5)
[2023-10-01] MEDS: LORazepam 2 MG/ML INJ IV STA (14:27)
--- NOTE | 2023-10-01 14:56 | CT ---
EXAMINATION TYPE: CT brain wo con DATE OF EXAM: 10/01/2023 COMPARISON: 02/09/2023 HISTORY: ams CT DLP: 1102.[address] of the brain was performed. The ventricles, basal cisterns and sulci overlying the cerebral convexities demonstrate mild to moder ate enlargement. Remote insults of bifrontal regions. There is no evidence for intracranial hemorrhage or sulcal effacement. There is decreased attenuation about the periventricular white matter and deep white matter of both c erebral hemispheres, compatible with chronic small vessel ischemia. Differential diagnosis does inclu de demyelination. No mass effects are seen.No midline shift. Bilateral craniotomy changes. Right frontal shunt catheter with distal tip within the right frontal h orn. If symptoms persist consider MRI. IMPRESSION: 1. Age related atrophic and chronic small vessel ischemic change without acute intracranial process s een at this time.
--- NOTE | 2023-10-01 15:04 | CT ---
EXAMINATION TYPE: CT angio head neck DATE OF EXAM: 10/01/2023 COMPARISON: None HISTORY: ams CT DLP: 333.1 mGycm CONTRAST: Performed with IV Contrast, patient injected with 65 mL of Isovue 370. Combination Contrast CTA cervical carotids and [place] CTA cervical carotids with 3-D recons truction Contrast CTA of the cervical carotids was performed 3-D reconstruction imaging obtained at a separate workstation. Right carotid system: Mild plaque is seen of the right common carotid artery. There is mild plaque a lso noted at the carotid bulb and proximal ICA. 50%. ECA is patent. Right vertebral artery appears unremarkable. Left carotid system: Mild plaque is seen of the left common carotid artery. There is moderate calcif ied plaque also noted at the carotid bulb and proximal ICA. Diameter reduction approximately 60%. ECA is patent. Left vertebral artery appears unremarkable. IMPRESSION: 1. Estimated 60% diameter reduction left carotid bulb and 50% on the right. CTA [place] of [place] with 3-D reconstruction Contrast CTA of the grand [place] of [place] was performed 3-D reconstruction imaging obtained at a separate workstation. Vertebrobasilar system as well as intracranial portions of the internal carotid arteries and their ma ludmila tributaries are patent. I do not see evidence for sizable aneurysm or vascular malformation. Pl ease note MRI provides greater sensitivity and specificity. Visualized brain appears grossly unremar kable. IMPRESSION: 1. No significant abnormality. NASCET criteria was used in interpretation of this exam?
[2023-10-01] MEDS ORDERED: NALOXONE 0.4 MG/ML 1 ML VIAL IV PRN (15:08)
[2023-10-01] MEDS: SODIUM CHLORIDE 0.9% 1,000 ML IV SCH (19:23)
[2023-10-02] MEDS ORDERED: BUTALB/APAP/CAFF 50-325-40MG TAB PO PRN (00:12)
[2023-10-02 00:35] VITALS: RESP 16
[2023-10-02] MEDS: CARBIDOPA-LEVODOPA 25-100 MG 1 EACH TAB PO SCH (06:13)
[2023-10-02] MEDS: ALPRAZolam 0.25 MG TAB PO SCH (06:13)
[2023-10-02] MEDS: ACETAMINOPHEN TAB 325 MG TAB PO SCH (06:13)
[2023-10-02] MEDS: ARIPiprazole 15 MG TAB PO SCH (06:13)
[2023-10-02] MEDS: DIVALPROEX 500 MG TABLET.DR PO SCH (06:13)
--- NOTE | 2023-10-02 09:37 | P.HPIM ---
History of Present Illness This is a pleasant 68 years old female with multiple medical problems as below. Was sent for worsening dementia with increased weakness, patient was so weak she cannot get up. She has history of TIA and they wanted to rule out stroke. Patient this morning she is awake but she is confused, she can tell she is in hospital but she does not know which hospital, she is disoriented to time and person. However she follows command but she has no insight. She looks pleasant denies any specific symptoms. She states she has chronic he adache. She has tremor in both hands and jaw most likely related to her Parkinson disease. No chest pain no abdominal pain, abdomen looks soft. Denies specific urinary complaint. She moves all extremities symmetrically. No neck stiffness. However as above patient is poor historian She is afebrile and vital stable She has unremarkable CBC, BMP, urine analysis Influenza A and type B, RSV, SARS (coronavirus) are and detected Troponin is negative CT of the brain is negative for acute process Carotid artery showing 60% stenosis on the left side and 50% stenosis on the right side Chest x-ray is negative for acute process EKG showing sinus rhythm at 78 Review of Systems Review of systems CONSTITUTIONAL: No fever, no malaise, no fatigue. HEENT: No recent visual problems or hearing problems. Denied any sore throat. CARDIOVASCULAR: No orthopnea, PND, no palpitations, no syncope. PULMONARY: No shortness of breath, no cough, no hemoptysis. GASTROINTESTINAL: No diarrhea, no nausea, no vomiting, no abdominal pain. Normoactive bowel sounds. NEUROLOGICAL: No headaches, no weakness, no numbness. HEMATOLOGICAL: Denies any bleeding or petechiae. GENITOURINARY: Denies any burning micturition, frequency, or urgency. MUSCULOSKELETAL/RHEUMATOLOGICAL: Denies any joint pain, swelling, or any muscle pain. ENDOCRINE: Denies any polyuria or polydipsia. Past Medical History Past Medical History: CVA/TIA, GERD/Reflux, Hyperlipidemia, Liver Disease Additional Past Medical History / Comment(s): brain aneurysm; TIA; Hepatitis C; Dementia; Psychosis History of Any Multi-Drug Resistant Organisms: None Reported Past Surgical History: Back Surgery, Orthopedic Surgery Additional Past Surgical History / Comment(s): shunt placement, neck surgery, right knee Past Psychological History: No Psychological Hx Reported Smoking Status: Current every day smoker Past Alcohol Use History: Occasional Past Drug Use History: None Reported Medications and Allergies Home Medications Medication Instructions Recorded Confirmed Type Clopidogrel Bisulfate [Plavix] 75 mg PO HS@199911/06/20 10/01/23 History Ezetimibe [Zetia] 10 mg PO DAILY 11/06/20 10/01/23 History Sertraline HCl [Zoloft] 100 mg PO DAILY 11/06/20 10/01/23 History Topiramate [Topamax] 100 mg PO DAILY 11/06/20 10/01/23 History traZODone HCL 100 mg PO HS@199911/06/20 10/01/23 History ALPRAZolam [Xanax] 0.25 mg PO TID@0700,1300,1900 06/29/21 10/01/23 History Acetaminophen [Acetaminophen 8 650 mg PO QID@07,13,19,23 06/29/21 10/01/23 History Hour] ARIPiprazole [Abilify] 15 mg PO DAILY@0700 10/01/23 10/01/23 History Butalb/Acetaminophen/Caffeine 1 cap PO DAILY 10/01/23 10/01/23 History [Fioricet 50-300-40 mg Capsule] Butalb/Acetaminophen/Caffeine 1 cap PO Q12H PRN 10/01/23 10/01/23 History [Fioricet 50-300-40 mg Capsule] Carbidopa-Levodopa 25-100 mg 1 tab PO TID@0700,1300,1900 10/01/23 10/01/23 History [Sinemet 25-100] Divalproex [Depakote] 500 mg PO BID@0700,1600 10/01/23 10/01/23 History Esomeprazole Magnesium 20 mg PO HS@199910/01/23 10/01/23 History Melatonin 6 mg PO HS 10/01/23 10/01/23 History Meloxicam [Mobic] 15 mg PO DAILY 10/01/23 10/01/23 History Memantine [Namenda] 10 mg PO DAILY 10/01/23 10/01/23 History Naloxone HCl 4 mg NASAL ONCE PRN 10/01/23 10/01/23 History Naloxone Hcl Injection Solution 0.4 mg SQ ONCE PRN 10/01/23 10/01/23 History 0.4mg/Ml Allergies Allergy/AdvReac Type Severity Reaction Status Date / Time No Known Allergies Allergy Verified 02/09/23 01:45 Physical Exam Vitals: Vital Signs Temp Pulse Pulse Resp BP BP Pulse Ox 10/02/23 03:40 71 16 146/67 97 10/01/23 23:30 98.4 F 74 16 137/76 96 10/01/23 22:53 74 18 140/82 94 L 10/01/23 18:31 82 20 146/68 94 L 10/01/23 15:40 80 18 91/50 10/01/23 14:03 76 17 124/68 96 10/01/23 10:46 97.2 F L 76 18 104/74 95 Intake and Output 10/01/23 10/02/23 10/02/23 22:59 06:59 14:59 Other: Weight 63.503 kg -GENERAL: Patient is confused and she is oriented only partially to place, not in any acute distress. Well developed, well nourished. HEENT: Pupils are round and equally reacting to light. EOMI. No scleral icterus. No conjunctival pallor. Normocephalic, atraumatic. No pharyngeal erythema. No thyromegaly. CARDIOVASCULAR: S1 and S2 present. No murmurs, rubs, or gallops. PULMONARY: Chest is clear to auscultation, no wheezing , no crackles. ABDOMEN: Soft, nontender, nondistended, normoactive bowel sounds. No palpable organomegaly. MUSCULOSKELETAL: No joint swelling or deformity. EXTREMITIES: No cyanosis, clubbing, or pedal edema. -NEUROLOGICAL: Gross neurological examination did not reveal any focal deficits. tremor of both hands and eli SKIN: No rashes. no petechiae. Results CBC & Chem 7: 10/01/23 11:28 10/01/23 11:28 Labs: Abnormal Lab Results - Last 24 Hours (Table) 10/01/23 10/01/23 10/01/23 Range/Units 11:28 11:28 12:21 RBC 3.78 L (3.80-5.40) m/uL MCV 105.0 H (80.0-100.0) fL Chloride 111 H (98-107) mmol/L Urine Appearance Cloudy H (Clear) Urine Protein Trace H (Negative) Urine Ketones Trace H (Negative) Ur Leukocyte Esterase Trace H (Negative) Urine Bacteria Rare H (None) /hpf Urine Mucus Rare H (None) /hpf Assessment and Plan Assessment: Altered mental status, could be part of worsening dementia which looks advanced. He has history of TIA and wanted to rule out stroke Parkinson disease She has bilateral internal carotid artery stenosis, 50% on the right side and 60% on the left side Chronic heart failure with no acute exacerbation, unknown ejection fraction Diabetes mellitus Hypertension Hyperlipidemia History of osteoarthritis Hypothyroidism Deep venous thrombosis and pulmonary embolism Plan: Continue monitoring closely Recheck urine analysis Neurology consult Labs and medication were reviewed.. Continue same treatment. Continue with symptomatic treatment. Resume home medication. Monitor lytes and vitals. DVT and GI prophylaxis. Further recommendations depends on the clinical course of the patient DVT prophylaxis: Subcutaneous heparin GI Prophylaxis: Pepcid Prognosis is guarded
[2023-10-02] MEDS: MEMANTINE 10 MG TAB PO SCH (09:48)
[2023-10-02] MEDS: TOPIRAMATE 100 MG TAB PO SCH (09:48)
[2023-10-02] MEDS: MELOXICAM 7.5 MG TAB PO SCH (09:49)
[2023-10-02] MEDS: BUTALB/APAP/CAFF 50-325-40MG TAB PO SCH (09:49)
[2023-10-02] MEDS: SERTRALINE 100 MG TAB PO SCH (09:49)
[2023-10-02] MEDS: EZETIMIBE 10 MG TAB PO SCH (09:50)
[2023-10-02] MEDS: PANTOPRAZOLE 40 MG TABLET PO SCH (20:34)
[2023-10-02] MEDS: CLOPIDOGREL 75 MG TAB PO SCH (20:34)
[2023-10-02] MEDS: MELATONIN 3 MG TABLET PO SCH (20:34)
[2023-10-02] MEDS: traZODone HCL 100 MG TAB PO SCH (20:34)
--- NOTE | 2023-10-02 23:34 | EEG ---
ELECTROENCEPHALOGRAM REPORT PREAMBLE: This is a 68-year-old female with history of dementia, came with a syncopal episode. This study is performed to rule out any seizure activity. EEG FINDINGS: This is a 21-channel digital EEG recorded with video component, utilizing 10/20 international system with referential and bipolar montages. Background consists of well developed, moderately well regulated, mixed frequencies of 8 to 9 hertz alpha, intermixed with some 4 to 6 hertz moderate amplitude theta activity seen in bihemispheric region. Background is posterior dominant and does not seem to be reactive to eye opening or closing. Frequent myogenic activity was seen in the temporal region from her tremors. Photic driving response was not seen. Different stages of sleep were not seen. No focal or generalized epileptiform activity was seen. IMPRESSION: This is an abnormal EEG due to background slowing of mild to moderate degree. This is suggestive of generalized cerebral dysfunction as can be seen with toxic metabolic encephalopathy or related to diffuse structural brain abnormality. No epileptiform activity was seen. MMODL / IJN: [id number] / [facility]ANES[facility]
--- NOTE | 2023-10-03 07:13 | P.CNNES ---
History of Present Illness Consult date: 10/02/23 Requesting physician: Timo Clarke Reason for Consult: AMS History of Present Illness: Patient is a 68-year-old right-handed female with history of dementia, possible Parkinson's, came to the hospital by ambulance yesterday at 10:39 AM for possible syncopal spell. Patient states that she probably fainted in the half-way. She does not know the name of the half-way that she lives in. Patient is very hard of hearing. Patient randomly said "they are killing cats and dogs". When I asked who "they" are, patient replied "people". She says "they hate animals and they should be killed". Patient does not know name of "those people that are killing animals". Patient says that she has 2 children and she does walk a lot by herself and does not use any assistive device. She admits to having diabetes, however her last A1c is 5.2 which is completely normal, and patient not on any medication for diabetes. Patient admits to having strokes in the past related to her aneurysm surgery. As per EMS flowsheet it was reported that the nurse at the facility noted that patient this morning has not gotten out of bed whereas her normal is that she usually gets up and about on her own. Her last known normal time is unknown, assumed to be when she went to bed. At 6 AM shift change, patient was sleeping, she has been awake for the last hour. No other deviations from patient normal was observed or reported. On examination patient was sitting up in the bed, alert to her baseline. She is conversive but due to pre-existing dementia patient is confused. Patient denied any pain and does not tell why she cannot get up. Patient was able to follow simple commands. Patient had very obvious tremors. Her stroke scale was negative. During transport patient was conversive and demonstrates humor during conversation. Her vitals at the scene was blood pressure 108/67, pulse rate 91 respiration 15 saturation 96% temperature 97.7. Blood sugar 121. Blood test shows normal CBC with elevated MCV 105. CMP is normal. Troponin negative. UA negative, influenza, RSV and coronavirus PCR negative. EKG showed sinus rhythm. Chest x-ray revealed some strandy atelectasis at the left base. No definitive acute process. CT head revealed age-related atrophic and chronic small vessel ischemic change without acute intracranial process seen at this time. I personally reviewed CT head and there is evidence of old encephalomalacia involving the right anterior frontal temporal region, right posterior frontal region and right anterior temporal region. Also smaller area of encephalomalacia left frontal region. Evidence of ventricle. Cranial shunt. Evidence of previous craniotomy. Slight prominence of the ventricles, slightly more than a moderate of cortical atrophy. CTA of head and neck revealed estimated 60% diameter reduction left carotid bulb and 50% on the right. CTA of the [place] showed no significant abnormality. Patient had a RICKIE scan on 12/19/2022, which revealed unilateral reduction of activity of the left. Findings may suggest idiopathic Parkinson's disease or parkinsonian syndrome. Her home medications include Topamax 100 mg daily, sertraline 100 mg, trazodone 100 mg, Zetia 10 mg, Plavix 75 mg, Xanax 0.25 mg 3 times daily, Fioricet, meloxicam 15 mg, Namenda 10 mg daily, Abilify 15 mg daily, carbidopa levodopa 25/100 3 times daily, Depakote 500 mg twice daily, melatonin 6 mg and esomeprazole Patient has history of smoking for pack per day for about 12 years. Patient states that her sister buys her the cigarettes. She denies any alcohol use. No marijuana. Review of Systems Patient admits to having headache "all the time". She has headache for "very long time". She claims she has history of aneurysm and had surgery for it. Also admits to having some chest pain and abdominal pain. Other pertinent positive and negatives mentioned as per HPI. Past Medical History Past Medical History: CVA/TIA, GERD/Reflux, Hyperlipidemia, Liver Disease Additional Past Medical History / Comment(s): brain aneurysm; TIA; Hepatitis C; Dementia; Psychosis History of Any Multi-Drug Resistant Organisms: None Reported Past Surgical History: Back Surgery, Orthopedic Surgery Additional Past Surgical History / Comment(s): shunt placement, neck surgery, right knee Past Psychological History: No Psychological Hx Reported Smoking Status: Current every day smoker Past Alcohol Use History: Occasional Past Drug Use History: None Reported Medications and Allergies Home Medications Medication Instructions Recorded Confirmed Type Clopidogrel Bisulfate [Plavix] 75 mg PO HS@199911/06/20 10/01/23 History Ezetimibe [Zetia] 10 mg PO DAILY 11/06/20 10/01/23 History Sertraline HCl [Zoloft] 100 mg PO DAILY 11/06/20 10/01/23 History Topiramate [Topamax] 100 mg PO DAILY 11/06/20 10/01/23 History traZODone HCL 100 mg PO HS@199911/06/20 10/01/23 History ALPRAZolam [Xanax] 0.25 mg PO TID@0700,1300,1900 06/29/21 10/01/23 History Acetaminophen [Acetaminophen 8 650 mg PO QID@07,13,,23 06/29/21 10/01/23 History Hour] ARIPiprazole [Abilify] 15 mg PO DAILY@0700 10/01/23 10/01/23 History Butalb/Acetaminophen/Caffeine 1 cap PO DAILY 10/01/23 10/01/23 History [Fioricet 50-300-40 mg Capsule] Butalb/Acetaminophen/Caffeine 1 cap PO Q12H PRN 10/01/23 10/01/23 History [Fioricet 50-300-40 mg Capsule] Carbidopa-Levodopa 25-100 mg 1 tab PO TID@0700,1300,1900 10/01/23 10/01/23 History [Sinemet 25-100] Divalproex [Depakote] 500 mg PO BID@0700,1600 10/01/23 10/01/23 History Esomeprazole Magnesium 20 mg PO HS@199910/01/23 10/01/23 History Melatonin 6 mg PO HS 10/01/23 10/01/23 History Meloxicam [Mobic] 15 mg PO DAILY 10/01/23 10/01/23 History Memantine [Namenda] 10 mg PO DAILY 10/01/23 10/01/23 History Naloxone HCl 4 mg NASAL ONCE PRN 10/01/23 10/01/23 History Naloxone Hcl Injection Solution 0.4 mg SQ ONCE PRN 10/01/23 10/01/23 History 0.4mg/Ml Allergies Allergy/AdvReac Type Severity Reaction Status Date / Time No Known Allergies Allergy Verified 02/09/23 01:45 Physical Examination - Vital Signs Vital Signs: Vital Signs Temp Pulse Pulse Resp BP BP Pulse Ox 10/02/23 12:00 78 16 134/67 97 10/02/23 08:00 83 16 101/65 96 10/02/23 03:40 71 16 146/67 97 10/01/23 23:30 98.4 F 74 16 137/76 96 10/01/23 22:53 74 18 140/82 94 L 10/01/23 18:31 82 20 146/68 94 L 10/01/23 15:40 80 18 91/50 10/01/23 14:03 76 17 124/68 96 Intake and Output 10/01/23 10/02/23 10/02/23 22:59 06:59 14:59 Intake Total 440 Balance 440 Intake: Oral 440 Other: Weight 63.503 kg Patient is an elderly female, who is very hard of hearing. Patient is alert awake in no distress. Patient states it is April and the year is 2003. She believes it's the winter season. She states that she is currently in [facility]. She believes that she lives in [place]. Patient says that she lives in "[facility]". She states current president is Martha. Speech and language functions are normal. Patient can name and repeat very well. No aphasia or dysarthria. Attention, concentration is slightly impaired and fund of knowledge is significantly limited. On cranial nerve examination, pupils are equal, round and reacting to light, visual navas are full on confrontation, with no neglect on double simultaneous stimulation. Extraocular muscles are intact with no nystagmus. Face is symmetric, tongue protrudes to the midline. Palatal elevation and sensation normal, hearing is severely decreased and shoulder shrug normal, facial sensation normal. On muscle strength testing, there is no pronator drift and the strength is normal in arms and legs distally and proximally. Deep tendon reflexes are asymmetric (right/left) biceps 2/2, brachioradialis 2/2, knees 2/0, ankles 1+/1+ and plantars are possibly upgoing bilaterally. Sensory to touch is equal with no neglect on double simultaneous stimulation. Cerebellar function showed no ataxia, but has moderate tremors for [id number] testing bilaterally. No ataxia for [id number] testing on either side. Tone is mildly increased bilaterally and bulk of muscles normal. Patient has moderate to severe tremors of outstretched hands. Patient has moderate tremors at rest involving both hands. Also has chin tremors. Gait deferred.. On general examination, there is no carotid bruit or murmur, S1-S2 audible. Chest is clear on consultation. Abdomen is soft nontender. No organomegaly, bowel sounds present. Peripheral pulses are present. No peripheral edema. Results - Laboratory Findings CBC and BMP: 10/01/23 11:28 10/01/23 11:28 Abnormal Lab Findings: Abnormal Labs 10/01/23 10/01/23 10/01/23 11:28 11:28 12:21 RBC 3.78 L MCV 105.0 H Chloride 111 H Urine Appearance Cloudy H Urine Protein Trace H Urine Ketones Trace H Ur Leukocyte Esterase Trace H Urine Bacteria Rare H Urine Mucus Rare H Assessment and Plan Assessment: * Syncopal episode, rule out seizure * Dementia * Tremors at rest and with posture. Patient had abnormal RICKIE scan in the past, suggestive of possible Parkinson's. However patient is also on Abilify, which can produce drug-induced Parkinson's. Patient is currently also on Depakote which can produce intention tremors as well. * Polypharmacy. * History of cerebral aneurysm, status post craniotomy with presence of ventriculoperitoneal shunt catheter. 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 * Hard of hearing * Macrocytosis Plan: * EEG rule out epileptiform activity. * CTA of head and neck revealed estimated 60% diameter reduction left carotid bulb and 50% on the right. CTA of the [place] showed no significant abnormality. * Patient has macrocytosis. We will check B12, folate, TSH, RPR. Hemoglobin A1c 5.2 on 07/03/2023. * Patient has significant tremors at rest, and also with posture/intention. Patient is on multiple medications, which can enhance tremor including Abilify and Depakote. Patient is also on Sinemet to counteract the tremor. Suggest stopping Abilify, if possible. However it appears patient does have history of psychosis. * Patient currently on Plavix and 5 mg daily. Also on Namenda 10 mg daily. Patient also on Topamax 100 mg daily, likely for chronic headaches. * Neurology will follow. Thank you for the consult. Time with Patient: Greater than 30
--- NOTE | 2023-10-03 12:24 | P.DS ---
Providers Date of admission: 10/01/23 15:09 Attending physician: Kay Mendes Consults: 10/01/23 15:43 Consult Physician Routine Consulting Provider: Gabby Marcano Consult Reason/Comments: ams Do you want consulting provider notified?: Yes Primary care physician: Daxa Richardson, Hospital Course: Diagnoses: Altered mental status, combined effects of dementia and sedative medication. Very unlikely to be TIA or neurological event. Patient will require to limit her sedatives. Parkinson disease She has bilateral internal carotid artery stenosis, 50% on the right side and 60% on the left side Chronic heart failure with no acute exacerbation, unknown ejection fraction Diabetes mellitus Hypertension Hyperlipidemia History of osteoarthritis Hypothyroidism Deep venous thrombosis and pulmonary embolism Hospital course: This is a pleasant 68 years old female with multiple medical problems as below. Was sent for worsening dementia with increased weakness, patient was so weak she cannot get up. She has history of TIA and they wanted to rule out stroke. Patient this morning she is awake but she is confused, she can tell she is in hospital but she does not know which hospital, she is disoriented to time and person. However she follows command but she has no insight. She looks pleasant denies any specific symptoms. She states she has chronic headache. She has tremor in both hands and jaw most likely related to her Parkinson disease. No chest pain no abdominal pain, abdomen looks soft. Denies specific urinary complaint. She moves all extremities symmetrically. No neck stiffness. However as above patient is poor historian She is afebrile and vital stable She has unremarkable CBC, BMP, urine analysis Influenza A and type B, RSV, SARS (coronavirus) are and detected Troponin is negative CT of the brain is negative for acute process Carotid artery showing 60% stenosis on the left side and 50% stenosis on the right side Chest x-ray is negative for acute process EKG showing sinus rhythm at 78 Patient today is fully awake, she wants to go back to her place. She denies any specific complaint She feels very strong in both upper and lower extremities. No headache no di zziness meningeal signs absent No chest pain or dyspnea No dysuria or diarrhea no abdominal pain No other new complaint Patient was cleared for discharge by neurologist Problems and management plan were discussed with the patient and he verbalized understanding and acceptance Patient was found stable and can be discharged home in guarded prognosis however he needs follow-up as an outpatient. Patient was instructed to follow up with PCP within one week and patient agrees Physical exam Gen: patient is a awake and alert, no distress CVS: S1-S2, RRR, no murmur Lungs: B/L CTA, no wheezing Abdomen: soft, no distention, no tenderness, positive bowel sounds Extremity: no leg edema or induration Time spent more than 35 minutes Patient Condition at Discharge: Fair Plan - Discharge Summary Discharge Rx Participant: No New Discharge Prescriptions: Continue Topiramate [Topamax] 100 mg PO DAILY Sertraline HCl [Zoloft] 100 mg PO DAILY Acetaminophen [Acetaminophen 8 Hour] 650 mg PO QID@,,, Naloxone HCl 4 mg NASAL ONCE PRN PRN Reason: overdose Naloxone Hcl Injection Solution 0.4mg/Ml 0.4 mg SQ ONCE PRN PRN Reason: OVERDOSE Butalb/Acetaminophen/Caffeine [Fioricet 50-300-40 mg Capsule] 1 cap PO Q12H PRN PRN Reason: Headache Butalb/Acetaminophen/Caffeine [Fioricet 50-300-40 mg Capsule] 1 cap PO DAILY Meloxicam [Mobic] 15 mg PO DAILY Memantine [Namenda] 10 mg PO DAILY ARIPiprazole [Abilify] 15 mg PO DAILY@0700 traZODone HCL 100 mg PO HS@1999 #0 Ezetimibe [Zetia] 10 mg PO DAILY Clopidogrel Bisulfate [Plavix] 75 mg PO HS@1999 Carbidopa-Levodopa 25-100 mg [Sinemet 25-100 mg] 1 tab PO TID@0700,1300,1900 Divalproex [Depakote] 500 mg PO BID@0700,1600 Melatonin 6 mg PO HS Esomeprazole Magnesium 20 mg PO HS@1999 Changed ALPRAZolam [Xanax] 0.25 mg PO HS 5 Days #5 tab Discharge Medication List Clopidogrel Bisulfate [Plavix] 75 mg PO HS@199911/06/20 [History] Ezetimibe [Zetia] 10 mg PO DAILY 11/06/20 [History] Sertraline HCl [Zoloft] 100 mg PO DAILY 11/06/20 [History] Topiramate [Topamax] 100 mg PO DAILY 11/06/20 [History] Acetaminophen [Acetaminophen 8 Hour] 650 mg PO QID@,,,23 06/29/21 [History] ARIPiprazole [Abilify] 15 mg PO DAILY@0700 10/01/23 [History] Butalb/Acetaminophen/Caffeine [Fioricet 50-300-40 mg Capsule] 1 cap PO DAILY 10/01/23 [History] Butalb/Acetaminophen/Caffeine [Fioricet 50-300-40 mg Capsule] 1 cap PO Q12H PRN 10/01/23 [History] Carbidopa-Levodopa 25-100 mg [Sinemet 25-100 mg] 1 tab PO TID@0700,1300,1900 10/01/23 [History] Divalproex [Depakote] 500 mg PO BID@0700,1600 10/01/23 [History] Esomeprazole Magnesium 20 mg PO HS@199910/01/23 [History] Melatonin 6 mg PO HS 10/01/23 [History] Meloxicam [Mobic] 15 mg PO DAILY 10/01/23 [History] Memantine [Namenda] 10 mg PO DAILY 10/01/23 [History] Naloxone HCl 4 mg NASAL ONCE PRN 10/01/23 [History] Naloxone Hcl Injection Solution 0.4mg/Ml 0.4 mg SQ ONCE PRN 10/01/23 [History] ALPRAZolam [Xanax] 0.25 mg PO HS 5 Days #5 tab 10/03/23 [Rx] traZODone HCL 100 mg PO HS@1999 #0 10/03/23 [Rx] Follow up Appointment(s)/Referral(s): Daxa Richardson DO [Primary Care Provider] - 1-2 days
--- NOTE | 2023-10-03 17:15 | P.PN ---
Subjective Progress Note Date: 10/03/23 Patient was seen for a follow-up. Patient is laying comfortably in the bed. Offers no complaints. No syncopal spells. Objective - Vital Signs Vital signs: Vital Signs Temp 97.9 F 10/03/23 08:00 Pulse 84 10/03/23 12:00 Resp 16 10/03/23 16:00 BP 122/68 10/03/23 16:00 Pulse Ox 96 10/03/23 16:00 FiO2 Intake & Output 10/02/23 10/03/23 10/03/23 18:59 06:59 18:59 Intake Total 440 120 350 Output Total 350 Balance 90 120 350 Intake: Oral 440 120 350 Output: Urine 350 Other: # Voids 1 # Bowel Movements 1 - Exam Patient is laying in the bed, has very significant shakes. Patient states it is February and the year is something. She knows that she is in a medical building but believes it is in the [facility], could not tell the state. Patient hands are shaking significantly while eating. Speech and language functions are normal. - Labs CBC & Chem 7: 10/01/23 11:28 10/01/23 11:28 Assessment and Plan Assessment: * Syncopal episode, doubt seizure. EEG did not show any epileptiform activity. * Dementia * Tremors at rest and with posture. Patient had abnormal RICKIE scan in the past, suggestive of possible Parkinson's. However patient is also on Abilify, which can produce drug-induced Parkinson's. Patient is currently also on Depakote which can produce intention tremors as well. * Polypharmacy. * History of ruptured cerebral aneurysm, status post craniotomy, with presence of ventriculoperitoneal shunt catheter. 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 * Hard of hearing * Macrocytosis, likely due to vitamin B12 deficiency Plan: * EEG was performed, which is abnormal due to background slowing of mild to moderate degree. This suggestive of generalized cerebral dysfunction as can be seen with toxic metabolic encephalopathy or related to diffuse structural brain abnormality. Clinical correlation is recommended. No epileptiform activity was seen. * Patient currently on Topamax, Depakote. * CTA of head and neck revealed estimated 60% diameter reduction left carotid bulb and 50% on the right. CTA of the [place] showed no significant abnormality. * B12 333, folate 11.8, TSH 2.96, RPR nonreactive. Patient given vitamin B12 1000 mcg IM x 1 dose, and will continue vitamin B12 1000 mcg orally daily. * Hemoglobin A1c 5.2 on 07/03/2023. * Patient has significant tremors at rest, and also with posture/intention. Patient is on multiple medications, which can enhance tremor including Abilify and Depakote. Patient is also on Sinemet to counteract the tremor. Suggest stopping Abilify, if possible. However it appears patient does have history of psychosis. Recommend patient follow-up with neurologist/psychiatrist, whoever is managing her medications. * Patient currently on Plavix 75 mg daily. Also on Namenda 10 mg daily. Patient also on Topamax 100 mg daily, likely for chronic headaches. * Neurologically clear. Recommend follow-up with neurologist outpatient for management of tremors.
[2023-10-03] MEDS: CYANOCOBALAMIN 1,000 MCG/ML 1 ML VIAL IM ONE (20:30)
[2023-10-03 21:16] VITALS: BP 123/74; PULSE 68; TEMP 98.2
[2023-10-04] MEDS ORDERED: CYANOCOBALAMIN 500 MCG TAB PO SCH (09:00)
== END 2023-10-03 21:09 | DRG 57 ==
LOC: EC 10:39 → 3SCARD 15:09
PROVIDERS: ADMIT Hospitalist; ATTEND Hospitalist
DX: G20.A1 Parkinson's disease without dyskinesia, without mention of fluctuations (principal); J98.11 Atelectasis; F02.80 Dementia in other diseases classified elsewhere, unspecified severity, without behavioral disturbance, psychotic disturbance, mood disturbance, and anxiety; G93.89 Other specified disorders of brain; B19.20 Unspecified viral hepatitis C without hepatic coma; E11.9 Type 2 diabetes mellitus without complications; E03.9 Hypothyroidism, unspecified; D75.89 Other specified diseases of blood and blood-forming organs; I11.0 Hypertensive heart disease with heart failure; I50.9 Heart failure, unspecified; I65.23 Occlusion and stenosis of bilateral carotid arteries; Z66 Do not resuscitate; R41.82 Altered mental status, unspecified; E53.8 Deficiency of other specified B group vitamins; K21.9 Gastro-esophageal reflux disease without esophagitis; T42.75XA Adverse effect of unspecified antiepileptic and sedative-hypnotic drugs, initial encounter; E78.5 Hyperlipidemia, unspecified; H91.90 Unspecified hearing loss, unspecified ear; M19.90 Unspecified osteoarthritis, unspecified site; F17.210 Nicotine dependence, cigarettes, uncomplicated; Z79.1 Long term (current) use of non-steroidal anti-inflammatories (NSAID); Z79.02 Long term (current) use of antithrombotics/antiplatelets; Z79.899 Other long term (current) drug therapy; Z86.73 Personal history of transient ischemic attack (TIA), and cerebral infarction without residual deficits; Z98.2 Presence of cerebrospinal fluid drainage device; Z86.79 Personal history of other diseases of the circulatory system; Y92.129 Unspecified place in nursing home as the place of occurrence of the external cause
CPT/HCPCS: 36415; 70450; 70496; 70498; 71045; 80053; 81001; 82607; 82746; 83735; 84443; 84484; 85025; 86780; 87636; 93005; 95816; 96374; 99285